=== PATIENT | female | born 1990 | race Caucasian/White ===

== ENCOUNTER 2020-11-11 23:02 | Inpatient (IN) | payer MEDICAID ==
[2020-11-12] MEDS ORDERED: Sodium Chloride 0.9% 10 ML Syringe FLUSH PRN (00:06)
[2020-11-12] MEDS ORDERED: Lidocaine 1% 50 ML MDV INJECT ONE (00:06)
[2020-11-12] MEDS ORDERED: Calcium Carbonate 500 MG Tab.Chew PO PRN (00:06)
[2020-11-12] MEDS ORDERED: Nalbuphine 10 MG/1 ML Vial IVPUSH PRN (00:06)
[2020-11-12] MEDS ORDERED: Oxytocin/Lactated Ringers 10 UNIT/1,000 ML BAG IV SCH ×2 (00:15)
[2020-11-12] MEDS: Lactated Ringers 1,000 ML IV SCH ×4 (02:10→07:31)
--- NOTE | 2020-11-12 02:25 | PCM.LDHP ---
L&D History of Present Illness - General Date of Service: 11/12/20 Admit Problem/Dx: Patient Status Order with Admit Dx/Problem 11/11/20 23:11 Patient Status [ADT] Routine 11/12/20 00:06 Patient Status [ADT] Routine Admission Diagnosis/Problem Admission Diagnosis/Problem Normal labor Source of Information: Patient History Limitations: Reports: No Limitations - History of Present Illness Introduction:: 30-year-old -0-1-2 PETE 11/26/2020 at estimated gestational age of 38 weeks 0 days today presented to labor and delivery complaining of contractions possible leaking of fluid. AmniSure was negative. Cervix 3 cm dilated presenting to labor and delivery and approximate hour and a half later had progressed to 4 cm dilated amniotomy performed at 0206 hrs. clear fluid cervix is 4 cm dilated 80% effaced soft posterior cephalic presentation -1 station 3 1 heart rate. Actions have been ranging every 2 to 4 minutes. Patient is being hydrated for epidural. Patient has history of MRSA many years ago and rapid screen was negative today. Patient has had only 3 visits and 1 visit to labor and delivery during this . Blood type O+ antibody screen negative hemoglobin/hematocrit 14.7/45.3 platelets 285,000 on 02/10/2014. Rubella immune serology nonreactive hepatitis B surface antigen nonreactive HIV nonreactive. Patient did have history of negative GC probe with positive chlamydia probe treated in labor and delivery with a azithromycin by history. No follow-up test of cure has been obtained. hemoglobin 11.3 platelets 206,001-hour OB glucose screen 120 antibody screen negative RPR nonreactive on 02/10/2014 yes negative on 10/30/2020. Patient has history of previous section has had 1 subsequent to her section and also 1 station spontaneous due to infection at 20 weeks 0 days Plan delivery. Will need test of cure for GC chlamydia probe in the near future at Dr. Monzon's office Timing/Duration: Reports: hour(s): Location, : Reports: Abdomen, Lower back, Uterus Improves with: Reports: None Worsens with: Reports: None Associated Symptoms: Reports: N - Related Data Allergies/Adverse Reactions: Allergies Allergy/AdvReac Type Severity Reaction Status Date / Time Latex, Natural Rubber Allergy Hives Verified 10/30/20 15:54 Penicillins Allergy Hives Verified 10/30/20 15:54 Sulfa (Sulfonamide Allergy Hives Verified 10/30/20 15:54 Antibiotics) Home Medications: Home Meds Acetaminophen/oxyCODONE [Percocet 325-5 MG] 1 - 2 tab PO Q4H PRN #30 tablet 09/24/14 [Rx] Past Medical History HEENT History: Reports: Other (See Below) Other HEENT History: deviated septum Genitourinary History: Reports: Renal Calculus TSO History: Reports: , Other (See Below) Other OB/BYN History: 20 twin loss Hematologic History: Reports: Blood Transfusion(s) - Infectious Disease History Infectious Disease History: Reports: MRSA - Past Surgical History HEENT Surgical History: Reports: None GI Surgical History: Reports: Appendectomy, Cholecystectomy Social & Family History - Family History Family Medical History: No Pertinent Family History H&P Review of Systems - Review of Systems: Review Of Systems: See Below General: Reports: No Symptoms HEENT: Reports: No Symptoms Pulmonary: Reports: No Symptoms Cardiovascular: Reports: No Symptoms Gastrointestinal: Reports: No Symptoms Genitourinary: Reports: No Symptoms Musculoskeletal: Reports: No Symptoms Skin: Reports: No Symptoms Psychiatric: Reports: No Symptoms Neurological: Reports: No Symptoms Hematologic/Lymphatic: Reports: No Symptoms Immunologic: Reports: No Symptoms L&D Exam - Exam Exam: See Below - Vital Signs Vital Signs: Last Vital Signs Temp 97.9 F 11/11/20 23:19 Pulse 102 H 11/11/20 23:19 Resp 16 11/11/20 23:19 BP 115/66 11/11/20 23:19 Pulse Ox 99 11/11/20 23:19 Weight: 197 lb 14.4 oz - OB Specific Fundal Height In cm: 38 Contraction Duration (sec): 60 Contraction Frequency (min): 2-4 Contraction Intensity: Moderate Movement: Active Heart Tones: Present Heart Tones per Min: 140 Heart Rate (FHR) Variability: Moderate (6-25 bmp) Presentation: Vertex - Edwards Score Edwards Score Cervix Position: Posterior Edwards Score Consistency: Soft Edwards Score Effacement: >80% Edwards Score Dilation: 3-4 cm Edwards Score 's Station: -1 ,0 Edwards Score Total: 9 - Exam General: Alert, Oriented HEENT: Conjunctiva Clear, Mucosa Moist & [place] Neck: Supple, Trachea Midline Lungs: Clear to Auscultation, Normal Respiratory Effort Cardiovascular: Regular Rate, Regular Rhythm GI/Abdominal Exam: Normal Bowel Sounds, Soft, Non-Tender Genitourinary: Normal external exam Extremities: Normal Inspection, Non-Tender, No Pedal Edema, Normal Capillary Refill Skin: Warm, Dry, Intact Psychiatric: Alert, Normal Affect, Normal Mood - Patient Data Lab Results Last 24 hrs: Laboratory Results - last 24 hr 11/11/20 11/11/20 11/11/20 Range/Units 23:20 23:20 23:29 WBC (3.98-10.04) K/mm3 RBC (3.98-5.22) M/mm3 Hgb (11.2-15.7) gm/dl Hct (34.1-44.9) % MCV (79.4-94.8) fl MCH (25.6-32.2) pg MCHC (32.2-35.5) g/dl RDW Std Deviation (36.4-46.3) fL Plt Count (182-369) K/mm3 MPV (9.4-12.3) fl Neut % (Auto) (34.0-71.1) % Lymph % (Auto) (19.3-51.7) % [place] % (Auto) (4.7-12.5) % Eos % (Auto) (0.7-5.8) Baso % (Auto) (0.1-1.2) % Neut # (Auto) (1.56-6.13) K/mm3 Lymph # (Auto) (1.18-3.74) K/mm3 [place] # (Auto) (0.24-0.36) K/mm3 Eos # (Auto) (0.04-0.36) K/mm3 Baso # (Auto) (0.01-0.08) K/mm3 Urine Color Yellow (Yellow) Urine Appearance Clear (Clear) Urine pH 7.0 (5.0-8.0) Ur Specific [place] > or = 1.030 (1.005-1.030) Urine Protein Negative (Negative) Urine Glucose (UA) Negative (Negative) Urine Ketones Negative (Negative) Urine Occult Blood Negative (Negative) Urine Nitrite Negative (Negative) Urine Bilirubin Negative (Negative) Urine Urobilinogen 0.2 (0.2-1.0) Ur Leukocyte Esterase Negative (Negative) Urine RBC Not seen (0-5) /hpf Urine WBC Not seen (0-5) /hpf Ur Squamous Epith Cells 5-10 H (0-5) /hpf Urine Bacteria Few (FEW) /hpf Urine Mucus Few (FEW) /hpf Membrane Rupture Negative Urine Opiates Screen Negative (NIDUSW=329) Ur Buprenorphine Scrn Negative (CUTOFF=10) Ur Oxycodone Screen Negative (KTZ1EF=552) Urine Methadone Screen Negative (INNNQQ=004) Ur Propoxyphene Screen Negative (GKORAN=185) Ur Barbiturates Screen Negative (HCYGTM=473) Ur Tricyclics Screen Negative (FUJWVV=130) Ur Phencyclidine Scrn Negative (CUTOFF=25) Ur Amphetamine Screen Negative (RJUEKE=612) U Methamphetamines Scrn Negative (ZHZMDO=084) U Benzodiazepines Scrn Negative (MECFEN=509) U Cocaine Metab Screen Negative (ONNJVE=553) U Marijuana (THC) Screen Negative (CUTOFF=50) SARS-CoV-2 RNA (RO) (NEGATIVE) MRSA (PCR) 11/12/20 11/12/20 11/12/20 Range/Units 00:20 00:20 00:38 WBC 17.62 H (3.98-10.04) K/mm3 RBC 3.89 L (3.98-5.22) M/mm3 Hgb 12.0 (11.2-15.7) gm/dl Hct 36.1 (34.1-44.9) % MCV 92.8 (79.4-94.8) fl MCH 30.8 (25.6-32.2) pg MCHC 33.2 (32.2-35.5) g/dl RDW Std Deviation 47.2 H (36.4-46.3) fL Plt Count 233 (182-369) K/mm3 MPV 10.9 (9.4-12.3) fl Neut % (Auto) 72.1 H (34.0-71.1) % Lymph % (Auto) 17.3 L (19.3-51.7) % [place] % (Auto) 7.9 (4.7-12.5) % Eos % (Auto) 1.9 (0.7-5.8) Baso % (Auto) 0.3 (0.1-1.2) % Neut # (Auto) 12.70 H (1.56-6.13) K/mm3 Lymph # (Auto) 3.05 (1.18-3.74) K/mm3 [place] # (Auto) 1.40 H (0.24-0.36) K/mm3 Eos # (Auto) 0.33 (0.04-0.36) K/mm3 Baso # (Auto) 0.06 (0.01-0.08) K/mm3 Urine Color (Yellow) Urine Appearance (Clear) Urine pH (5.0-8.0) Ur Specific [place] (1.005-1.030) Urine Protein (Negative) Urine Glucose (UA) (Negative) Urine Ketones (Negative) Urine Occult Blood (Negative) Urine Nitrite (Negative) Urine Bilirubin (Negative) Urine Urobilinogen (0.2-1.0) Ur Leukocyte Esterase (Negative) Urine RBC (0-5) /hpf Urine WBC (0-5) /hpf Ur Squamous Epith Cells (0-5) /hpf Urine Bacteria (FEW) /hpf Urine Mucus (FEW) /hpf Membrane Rupture Urine Opiates Screen (PLVZBF=155) Ur Buprenorphine Scrn (CUTOFF=10) Ur Oxycodone Screen (QWZ0TV=481) Urine Methadone Screen (KVEUSE=758) Ur Propoxyphene Screen (RDZXFD=156) Ur Barbiturates Screen (ZSDXKZ=233) Ur Tricyclics Screen (BBHYYJ=523) Ur Phencyclidine Scrn (CUTOFF=25) Ur Amphetamine Screen (XJTBGJ=296) U Methamphetamines Scrn (RXIKYY=720) U Benzodiazepines Scrn (KXFPVT=379) U Cocaine Metab Screen (WROYPE=563) U Marijuana (THC) Screen (CUTOFF=50) SARS-CoV-2 RNA (RO) Negative (NEGATIVE) MRSA (PCR) Negative Result Diagrams: 11/12/20 00:38 - Problem List (1) History of delivery affecting SNOMED Code(s): 297699455, 142009432 ICD Code: O34.219 - MATERNAL CARE FOR UNSP TYPE SCAR FROM PREVIOUS DEL Status: Acute Current Visit: Yes (2) 38 weeks gestation of SNOMED Code(s): 94753510 ICD Code: Z3A.38 - 38 WEEKS GESTATION OF Status: Acute Current Visit: Yes (3) History of Chlamydia trachomatis infection by direct DNA probe SNOMED Code(s): 793778368 ICD Code: Z86.19 - PERSONAL HISTORY OF OTHER INFECTIOUS AND PARASITIC DISEASES Status: Acute Current Visit: Yes (4) History of maternal Chlamydia infection, currently in third trimester SNOMED Code(s): 77749269, 77769414 ICD Code: O09.293 - SUPRVSN OF PREG W POOR REPRODCTV OR OBSTET HX, THIRD TRI Status: Acute Current Visit: Yes Problem List Initiated/Reviewed/Updated: No Orders Last 24hrs: Active Orders 24 hr Category Date Time Status Patient Status [ADT] Routine ADT 11/12/20 00:06 Active Activity as Tolerated [RC] PFP Care 11/12/20 00:06 Active Communication Order [RC] ASDIRECTED Care 11/12/20 00:06 Active Heart Tones [RC] ASDIRECTED Care 11/12/20 00:07 Active Non Stress Test [RC] PER UNIT ROUTINE Care 11/11/20 23:11 Active Notify Provider [RC] PFP Care 11/12/20 00:06 Active Notify Provider [RC] PRN Care 11/12/20 00:06 Active Peripheral IV Care [RC] . DIRECTED Care 11/12/20 00:07 Active Pump Management, Intrathecal [RC] ASDIRECTED Care 11/12/20 00:07 Active Urinary Catheter Assessment [RC] ASDIRECTED Care 11/12/20 00:06 Active Vital Signs [RC] PER UNIT ROUTINE Care 11/11/20 23:11 Active Regular Diet [DIET] Diet 11/12/20 Breakfast Active CULTURE MRSA [RM] Stat Lab 11/12/20 01:35 Ordered HEP C VIRUS AB [REF] Stat Lab 11/12/20 00:38 Received RAPID PLASMA REAGIN,RPR [CHEM] Stat Lab 11/12/20 00:38 Received TYPE AND SCREEN [BBK] Stat Lab 11/12/20 00:38 Received Calcium Carbonate [Tums] Med 11/12/20 00:06 Active 1,000 mg PO Q2H PRN Lactated Ringers [Ringers, Lactated] 1,000 ml Med 11/12/20 00:15 Active IV ASDIRECTED Nalbuphine [Nubain] Med 11/12/20 00:06 Active 10 mg IVPUSH Q2H PRN Oxytocin/Lactated Ringers [Pitocin in LR 10 Units/1,000 Med 11/12/20 00:15 Active ML] 10 unit in 1,000 ml IV .CONTINUOUS Oxytocin/Lactated Ringers [Pitocin in LR 10 Units/1,000 Med 11/12/20 00:15 Active ML] 10 unit in 1,000 ml IV TITRATE Sodium Chloride 0.9% [Saline Flush] Med 11/12/20 00:06 Active 10 ml FLUSH ASDIRECTED PRN Electronic Heart Tones Ext w TOCO [WOMSER] Oth 11/12/20 00:06 Ordered Routine Electronic Heart Tones Internal [WOMSER] Per Unit Oth 11/12/20 00:06 Ordered Routine Peripheral IV Insertion Adult [OM.PC] Routine Oth 11/12/20 00:06 Ordered Resuscitation Status Routine Resus Stat 11/11/20 23:11 Ordered Medication Orders Calcium Carbonate/Glycine (Calcium Carbonate 500 Mg Tab.Chew) 1,000 mg PO Q2H PRN PRN Reason: Indigestion Lactated Ringer's (Ringers, Lactated) 1,000 mls @ 100 mls/hr IV ASDIRECTED [place] Last Admin: 11/12/20 02:10 Dose: 100 mls/hr Documented by: KELLCOL Oxytocin/Lactated Ringer's (Pitocin In Lr 10 Units/1,000 Ml) 10 unit in 1,000 mls @ 12 mls/hr IV TITRATE [place]; Protocol Oxytocin/Lactated Ringer's (Pitocin In Lr 10 Units/1,000 Ml) 10 unit in 1,000 mls @ 500 mls/hr IV .CONTINUOUS [place] Nalbuphine HCl (Nalbuphine 10 Mg/1 Ml Vial) 10 mg IVPUSH Q2H PRN PRN Reason: Pain Sodium Chloride (Sodium Chloride 0.9% 10 Ml Syringe) 10 ml FLUSH ASDIRECTED PRN PRN Reason: Keep Vein Open Assessment/Plan Comment:: Z3A.38. History of previous section with subsequent History of positive chlamydia probe treated azithromycin 1000 mg
[2020-11-12] MEDS ORDERED: fentaNYL 100 MCG/2 ML SDV EPIDUR PRN (02:50)
[2020-11-12] MEDS ORDERED: Bupivacaine/fentaNYL/NS 100 ML Bag EPIDUR PRN (02:50)
[2020-11-12] MEDS ORDERED: diphenhydrAMINE 50 MG/ML SDV IVPUSH PRN (02:50)
--- NOTE | 2020-11-12 03:38 | PCM.PREANE ---
Preanesthetic Assessment - Procedure Proposed Procedure: Continuous labor epidural - Anesthesia/Transfusion/Family Hx Anesthesia History: Prior Anesthesia Without Reaction Transfusion History: Prior Transfusion Without Reaction - Review of Systems General: No Symptoms Pulmonary: No Symptoms, Cough (smoker's) Cardiovascular: No Symptoms Gastrointestinal: No Symptoms Neurological: No Symptoms Other: Reports: None - Physical Assessment Vital Signs: Last Vital Signs Temp 97.9 F 11/11/20 23:19 Pulse 102 H 11/11/20 23:19 Resp 16 11/11/20 23:19 BP 115/66 11/11/20 23:19 Pulse Ox 99 11/11/20 23:19 Height: 1.6 m Weight: 89.766 kg ASA Class: 2 Mental Status: Alert & Oriented x3 Airway Class: Mallampati = 1 Dentition: Reports: Normal Dentition Thyro-Mental Finger Breadths: 3 Mouth Opening Finger Breadths: 3 ROM/Head Extension: Full Lungs: Clear to Auscultation, Normal Respiratory Effort Cardiovascular: Regular Rate, Regular Rhythm - Lab Values: Laboratory Last Values WBC 17.62 K/mm3 (3.98-10.04) H 11/12/20 00:38 RBC 3.89 M/mm3 (3.98-5.22) L 11/12/20 00:38 Hgb 12.0 gm/dl (11.2-15.7) 11/12/20 00:38 Hct 36.1 % (34.1-44.9) 11/12/20 00:38 MCV 92.8 fl (79.4-94.8) 11/12/20 00:38 MCH 30.8 pg (25.6-32.2) 11/12/20 00:38 MCHC 33.2 g/dl (32.2-35.5) 11/12/20 00:38 RDW Std Deviation 47.2 fL (36.4-46.3) H 11/12/20 00:38 Plt Count 233 K/mm3 (182-369) 11/12/20 00:38 MPV 10.9 fl (9.4-12.3) 11/12/20 00:38 Neut % (Auto) 72.1 % (34.0-71.1) H 11/12/20 00:38 Lymph % (Auto) 17.3 % (19.3-51.7) L 11/12/20 00:38 [place] % (Auto) 7.9 % (4.7-12.5) 11/12/20 00:38 Eos % (Auto) 1.9 (0.7-5.8) 11/12/20 00:38 Baso % (Auto) 0.3 % (0.1-1.2) 11/12/20 00:38 Neut # (Auto) 12.70 K/mm3 (1.56-6.13) H 11/12/20 00:38 Lymph # (Auto) 3.05 K/mm3 (1.18-3.74) 11/12/20 00:38 [place] # (Auto) 1.40 K/mm3 (0.24-0.36) H 11/12/20 00:38 Eos # (Auto) 0.33 K/mm3 (0.04-0.36) 11/12/20 00:38 Baso # (Auto) 0.06 K/mm3 (0.01-0.08) 11/12/20 00:38 Urine Color Yellow (Yellow) 11/11/20 23:20 Urine Appearance Clear (Clear) 11/11/20 23:20 Urine pH 7.0 (5.0-8.0) 11/11/20 23:20 Ur Specific [place] > or = 1.030 (1.005-1.030) 11/11/20 23:20 Urine Protein Negative (Negative) 11/11/20 23:20 Urine Glucose (UA) Negative (Negative) 11/11/20 23:20 Urine Ketones Negative (Negative) 11/11/20 23:20 Urine Occult Blood Negative (Negative) 11/11/20 23:20 Urine Nitrite Negative (Negative) 11/11/20 23:20 Urine Bilirubin Negative (Negative) 11/11/20 23:20 Urine Urobilinogen 0.2 (0.2-1.0) 11/11/20 23:20 Ur Leukocyte Esterase Negative (Negative) 11/11/20 23:20 Urine RBC Not seen /hpf (0-5) 11/11/20 23:20 Urine WBC Not seen /hpf (0-5) 11/11/20 23:20 Ur Squamous Epith Cells 5-10 /hpf (0-5) H 11/11/20 23:20 Urine Bacteria Few /hpf (FEW) 11/11/20 23:20 Urine Mucus Few /hpf (FEW) 11/11/20 23:20 Membrane Rupture Negative 11/11/20 23:29 Urine Opiates Screen Negative (TFMOIN=645) 11/11/20 23:20 Ur Buprenorphine Scrn Negative (CUTOFF=10) 11/11/20 23:20 Ur Oxycodone Screen Negative (KUM9SJ=116) 11/11/20 23:20 Urine Methadone Screen Negative (VYFWLM=506) 11/11/20 23:20 Ur Propoxyphene Screen Negative (PHEZHW=405) 11/11/20 23:20 Ur Barbiturates Screen Negative (KTHIMR=535) 11/11/20 23:20 Ur Tricyclics Screen Negative (HMQYGX=157) 11/11/20 23:20 Ur Phencyclidine Scrn Negative (CUTOFF=25) 11/11/20 23:20 Ur Amphetamine Screen Negative (QXKZHS=057) 11/11/20 23:20 U Methamphetamines Scrn Negative (BEAIVB=702) 11/11/20 23:20 U Benzodiazepines Scrn Negative (NADUEW=659) 11/11/20 23:20 U Cocaine Metab Screen Negative (RLSRRW=883) 11/11/20 23:20 U Marijuana (THC) Screen Negative (CUTOFF=50) 11/11/20 23:20 SARS-CoV-2 RNA (RO) Negative (NEGATIVE) 11/12/20 00:20 MRSA (PCR) Negative 11/12/20 00:20 Blood Type O POSITIVE 11/12/20 00:38 Gel Antibody Screen Negative 11/12/20 00:38 - Allergies Allergies/Adverse Reactions: Allergies Allergy/AdvReac Type Severity Reaction Status Date / Time Latex, Natural Rubber Allergy Hives Verified 10/30/20 15:54 Penicillins Allergy Hives Verified 10/30/20 15:54 Sulfa (Sulfonamide Allergy Hives Verified 10/30/20 15:54 Antibiotics) - Acknowledgements Anesthesia Type Planned: Epidural Pt an Appropriate Candidate for the Planned Anesthesia: Yes Alternatives and Risks of Anesthesia Discussed w Pt/Guardian: Yes Pt/Guardian Understands and Agrees with Anesthesia Plan: Yes PreAnesthesia Questionnaire HEENT History: Reports: Other (See Below) Other HEENT History: deviated septum Genitourinary History: Reports: Renal Calculus [employer] History: Reports: , Other (See Below) Other OB/BYN History: 20 twin loss Hematologic History: Reports: Blood Transfusion(s) - Infectious Disease History Infectious Disease History: Reports: MRSA - Past Surgical History HEENT Surgical History: Reports: None GI Surgical History: Reports: Appendectomy, Cholecystectomy - SUBSTANCE USE Tobacco Use Status *Q: Current Every Day Tobacco User Tobacco Use Within Last Twelve Months: Cigarettes Second Hand Smoke Exposure: Yes Recreational Drug Use History: No - HOME MEDS Home Medications: Home Meds Acetaminophen/oxyCODONE [Percocet 325-5 MG] 1 - 2 tab PO Q4H PRN #30 tablet 09/24/14 [Rx] - CURRENT (IN HOUSE) MEDS Current Meds: Current Medications Calcium Carbonate/Glycine (Calcium Carbonate 500 Mg Tab.Chew) 1,000 mg PO Q2H PRN PRN Reason: Indigestion Diphenhydramine HCl (Diphenhydramine 50 Mg/Ml Sdv) 25 mg IVPUSH Q6H PRN PRN Reason: pruritis Ephedrine Sulfate (Ephedrine 50 Mg/Ml Sdv) 5 mg IVPUSH ASDIRECTED PRN PRN Reason: Hypotension Fentanyl (Fentanyl 100 Mcg/2 Ml Sdv) 100 mcg EPIDUR Q3H PRN PRN Reason: Pain Last Admin: 11/12/20 02:56 Dose: 100 mcg Documented by: Fentanyl/Bupivacaine HCl (Bupivacaine/Fentanyl/Ns 100 Ml Bag) 100 ml EPIDUR ASDIRECTED PRN PRN Reason: Pain Last Admin: 11/12/20 03:03 Dose: 100 ml Documented by: Lactated Ringer's (Ringers, Lactated) 1,000 mls @ 100 mls/hr IV ASDIRECTED [place] Last Admin: 11/12/20 02:56 Dose: 100 mls/hr Documented by: Oxytocin/Lactated Ringer's (Pitocin In Lr 10 Units/1,000 Ml) 10 unit in 1,000 mls @ 12 mls/hr IV TITRATE [place]; Protocol Oxytocin/Lactated Ringer's (Pitocin In Lr 10 Units/1,000 Ml) 10 unit in 1,000 mls @ 500 mls/hr IV .CONTINUOUS [place] Nalbuphine HCl (Nalbuphine 10 Mg/1 Ml Vial) 10 mg IVPUSH Q2H PRN PRN Reason: Pain Sodium Chloride (Sodium Chloride 0.9% 10 Ml Syringe) 10 ml FLUSH ASDIRECTED PRN PRN Reason: Keep Vein Open Discontinued Medications Lidocaine HCl (Lidocaine 1% 50 Ml Mdv) 50 ml INJECT ONETIME ONE Stop: 11/12/20 00:07
[2020-11-12] MEDS: ePHEDrine 50 MG/ML SDV IVPUSH PRN ×2 (03:51→03:57)
--- NOTE | 2020-11-12 04:30 | PCM.SN.2 ---
- Free Text/Narrative Note: Cervix check at 0422 6 cm, 90% multiparous cervix, not paper thin, soft, posterior. Good pain relief with epidural. Cat I FHR.
--- NOTE | 2020-11-12 05:23 | PCM.SN.2 ---
- Free Text/Narrative Note: Cervix check at 0515 7 cm, 80% multiparous cervix, soft, posterior vertex - [address] Young starting coverage. If no progress at 0545 will consider starting Pitocin. contractions becoming more regular.
[2020-11-12] MEDS ORDERED: Benzocaine/Menthol 20%-0.5% Spray 56 GM Canister TOP PRN (11:31)
[2020-11-12] MEDS ORDERED: Docusate Sodium 100 MG Cap PO PRN (11:31)
[2020-11-12] MEDS ORDERED: Acetaminophen 325 MG Tab PO PRN (11:31)
[2020-11-12] MEDS ORDERED: Witch Hazel Medicated Pads 40/Jar TOP PRN (11:31)
--- NOTE | 2020-11-12 11:37 | PCM.DEL ---
L & D Note - General Info Date of Service: 11/12/20 Mother's Due Date: 11/26/20 - Delivery Note Labor: Spontaneous, Augmented by Oxytocin Delivery Outcome: Livebirth Infant Delivery Method: Spontaneous Vaginal Delivery-Single Infant Delivery Mode: Spontaneous Presentation: Left Occiput Anterior (SKIP) Nuchal Cord: None Anesthesia Type: Epidural Amniotic Fluid Description: Clear Episiotomy Type: None Laceration: 1st Degree (at the level of the urethral, hemodynamically stable ) Placenta: Intact, Spontaneous Cord: 3 Vessels Estimated Blood Loss: 100 Resuscitation Needed: No : Suctioned, Bulb Syringe, Stimulated, Warmed Provider: Stepan Tirado Score 1 min: 8 Score 5 min: 9 Second Stage Interventions: Reports: Encouragement Given Delivery Comments (Free Text/Narrative):: Stage I: 30 year old O+ GBS - x 1, x 1, SAB at 20 weeks female at 38 weeks 0 day gestation who presented to labor and delivery for complaints of contractions and leaking of fluid. Noted meconium staining. Patient received epidural and Pitocin titrated up to 6 mg for augmentation of labor and progressed to complete and pushing Stage II: of a live male infant weighing 2970 g (6 lbs 9 ounces) with APGARs of 8/9 occurred at 1102 on 11/12/20 in the SKIP position. The was placed on mother's abdomen and was warmed and stimulated. The cord was clamped and cut after approximately 2 minutes by the patient's sister. The infant was then brought over to the warmer. Stage III: Spontaneous delivery of an intact placenta in the [place] presentation at 1107. Cord was inspected and found to have three vessels. The vaginal mucosa was inspected. Less than 1 cm 1st degree laceration on the right labia minora at the level of the urethra was noted; appeared hemodynamically stable. No other noted lacerations. Noted nabothian cyst on the cervix. EBL of 100 mL. Uterus was firm. The infant and mother were stable to recovery. - General Info Date of Service: 11/12/20 Admission Dx/Problem (Free Text): Patient Status Order with Admit Dx/Problem 11/11/20 23:11 Patient Status [ADT] Routine 11/12/20 00:06 Patient Status [ADT] Routine Admission Diagnosis/Problem Admission Diagnosis/Problem Normal labor - Patient Data Vitals - Most Recent: Last Vital Signs Temp 97.9 F 11/11/20 23:19 Pulse 102 H 11/11/20 23:19 Resp 16 11/11/20 23:19 BP 115/66 11/11/20 23:19 Pulse Ox 99 11/11/20 23:19 Weight - Most Recent: 197 lb 14.4 oz Lab Results Last 24 Hours: Laboratory Results - last 24 hr 11/11/20 11/11/20 11/11/20 Range/Units 23:20 23:20 23:29 WBC (3.98-10.04) K/mm3 RBC (3.98-5.22) M/mm3 Hgb (11.2-15.7) gm/dl Hct (34.1-44.9) % MCV (79.4-94.8) fl MCH (25.6-32.2) pg MCHC (32.2-35.5) g/dl RDW Std Deviation (36.4-46.3) fL Plt Count (182-369) K/mm3 MPV (9.4-12.3) fl Neut % (Auto) (34.0-71.1) % Lymph % (Auto) (19.3-51.7) % [place] % (Auto) (4.7-12.5) % Eos % (Auto) (0.7-5.8) Baso % (Auto) (0.1-1.2) % Neut # (Auto) (1.56-6.13) K/mm3 Lymph # (Auto) (1.18-3.74) K/mm3 [place] # (Auto) (0.24-0.36) K/mm3 Eos # (Auto) (0.04-0.36) K/mm3 Baso # (Auto) (0.01-0.08) K/mm3 Urine Color Yellow (Yellow) Urine Appearance Clear (Clear) Urine pH 7.0 (5.0-8.0) Ur Specific [place] > or = 1.030 (1.005-1.030) Urine Protein Negative (Negative) Urine Glucose (UA) Negative (Negative) Urine Ketones Negative (Negative) Urine Occult Blood Negative (Negative) Urine Nitrite Negative (Negative) Urine Bilirubin Negative (Negative) Urine Urobilinogen 0.2 (0.2-1.0) Ur Leukocyte Esterase Negative (Negative) Urine RBC Not seen (0-5) /hpf Urine WBC Not seen (0-5) /hpf Ur Squamous Epith Cells 5-10 H (0-5) /hpf Urine Bacteria Few (FEW) /hpf Urine Mucus Few (FEW) /hpf Membrane Rupture Negative Urine Opiates Screen Negative (YQXHEI=824) Ur Buprenorphine Scrn Negative (CUTOFF=10) Ur Oxycodone Screen Negative (GUD0AK=516) Urine Methadone Screen Negative (FQLOXZ=333) Ur Propoxyphene Screen Negative (CMXBYL=692) Ur Barbiturates Screen Negative (CJXXFP=756) Ur Tricyclics Screen Negative (XLUJHF=525) Ur Phencyclidine Scrn Negative (CUTOFF=25) Ur Amphetamine Screen Negative (XMHAYG=905) U Methamphetamines Scrn Negative (BSOFJP=619) U Benzodiazepines Scrn Negative (GGCLFI=566) U Cocaine Metab Screen Negative (PWLPXC=370) U Marijuana (THC) Screen Negative (CUTOFF=50) SARS-CoV-2 RNA (RO) (NEGATIVE) MRSA (PCR) Blood Type Gel Antibody Screen 11/12/20 11/12/20 11/12/20 Range/Units 00:20 00:20 00:38 WBC 17.62 H (3.98-10.04) K/mm3 RBC 3.89 L (3.98-5.22) M/mm3 Hgb 12.0 (11.2-15.7) gm/dl Hct 36.1 (34.1-44.9) % MCV 92.8 (79.4-94.8) fl MCH 30.8 (25.6-32.2) pg MCHC 33.2 (32.2-35.5) g/dl RDW Std Deviation 47.2 H (36.4-46.3) fL Plt Count 233 (182-369) K/mm3 MPV 10.9 (9.4-12.3) fl Neut % (Auto) 72.1 H (34.0-71.1) % Lymph % (Auto) 17.3 L (19.3-51.7) % [place] % (Auto) 7.9 (4.7-12.5) % Eos % (Auto) 1.9 (0.7-5.8) Baso % (Auto) 0.3 (0.1-1.2) % Neut # (Auto) 12.70 H (1.56-6.13) K/mm3 Lymph # (Auto) 3.05 (1.18-3.74) K/mm3 [place] # (Auto) 1.40 H (0.24-0.36) K/mm3 Eos # (Auto) 0.33 (0.04-0.36) K/mm3 Baso # (Auto) 0.06 (0.01-0.08) K/mm3 Urine Color (Yellow) Urine Appearance (Clear) Urine pH (5.0-8.0) Ur Specific [place] (1.005-1.030) Urine Protein (Negative) Urine Glucose (UA) (Negative) Urine Ketones (Negative) Urine Occult Blood (Negative) Urine Nitrite (Negative) Urine Bilirubin (Negative) Urine Urobilinogen (0.2-1.0) Ur Leukocyte Esterase (Negative) Urine RBC (0-5) /hpf Urine WBC (0-5) /hpf Ur Squamous Epith Cells (0-5) /hpf Urine Bacteria (FEW) /hpf Urine Mucus (FEW) /hpf Membrane Rupture Urine Opiates Screen (REHSXY=555) Ur Buprenorphine Scrn (CUTOFF=10) Ur Oxycodone Screen (EHB7GA=623) Urine Methadone Screen (NXGILW=846) Ur Propoxyphene Screen (DRGCYE=946) Ur Barbiturates Screen (PISNNT=450) Ur Tricyclics Screen (DIEBEQ=374) Ur Phencyclidine Scrn (CUTOFF=25) Ur Amphetamine Screen (DNCRYF=848) U Methamphetamines Scrn (MKELLZ=142) U Benzodiazepines Scrn (JBVZTL=834) U Cocaine Metab Screen (NVTEVZ=260) U Marijuana (THC) Screen (CUTOFF=50) SARS-CoV-2 RNA (RO) Negative (NEGATIVE) MRSA (PCR) Negative Blood Type Gel Antibody Screen 11/12/20 Range/Units 00:38 WBC (3.98-10.04) K/mm3 RBC (3.98-5.22) M/mm3 Hgb (11.2-15.7) gm/dl Hct (34.1-44.9) % MCV (79.4-94.8) fl MCH (25.6-32.2) pg MCHC (32.2-35.5) g/dl RDW Std Deviation (36.4-46.3) fL Plt Count (182-369) K/mm3 MPV (9.4-12.3) fl Neut % (Auto) (34.0-71.1) % Lymph % (Auto) (19.3-51.7) % [place] % (Auto) (4.7-12.5) % Eos % (Auto) (0.7-5.8) Baso % (Auto) (0.1-1.2) % Neut # (Auto) (1.56-6.13) K/mm3 Lymph # (Auto) (1.18-3.74) K/mm3 [place] # (Auto) (0.24-0.36) K/mm3 Eos # (Auto) (0.04-0.36) K/mm3 Baso # (Auto) (0.01-0.08) K/mm3 Urine Color (Yellow) Urine Appearance (Clear) Urine pH (5.0-8.0) Ur Specific [place] (1.005-1.030) Urine Protein (Negative) Urine Glucose (UA) (Negative) Urine Ketones (Negative) Urine Occult Blood (Negative) Urine Nitrite (Negative) Urine Bilirubin (Negative) Urine Urobilinogen (0.2-1.0) Ur Leukocyte Esterase (Negative) Urine RBC (0-5) /hpf Urine WBC (0-5) /hpf Ur Squamous Epith Cells (0-5) /hpf Urine Bacteria (FEW) /hpf Urine Mucus (FEW) /hpf Membrane Rupture Urine Opiates Screen (GZARHN=727) Ur Buprenorphine Scrn (CUTOFF=10) Ur Oxycodone Screen (POF3LZ=778) Urine Methadone Screen (IKVPFT=345) Ur Propoxyphene Screen (WGEGLX=723) Ur Barbiturates Screen (XCSVXE=333) Ur Tricyclics Screen (HXPVWO=067) Ur Phencyclidine Scrn (CUTOFF=25) Ur Amphetamine Screen (HZKNYQ=477) U Methamphetamines Scrn (TNFDZK=121) U Benzodiazepines Scrn (BLBVMV=999) U Cocaine Metab Screen (VOLNOE=522) U Marijuana (THC) Screen (CUTOFF=50) SARS-CoV-2 RNA (RO) (NEGATIVE) MRSA (PCR) Blood Type O POSITIVE Gel Antibody Screen Negative Med Orders - Current: Current Medications Acetaminophen (Acetaminophen 325 Mg Tab) 650 mg PO Q4H PRN PRN Reason: mild pain or fever Benzocaine/Menthol (Benzocaine/Menthol 20%-0.5% [place] 56 Gm Canister) 0 gm TOP ASDIRECTED PRN PRN Reason: Perineal Comfort Measure Calcium Carbonate/Glycine (Calcium Carbonate 500 Mg Tab.Chew) 1,000 mg PO Q2H PRN PRN Reason: Indigestion Diphenhydramine HCl (Diphenhydramine 50 Mg/Ml Sdv) 25 mg IVPUSH Q6H PRN PRN Reason: pruritis Docusate Sodium (Docusate Sodium 100 Mg Cap) 100 mg PO BID PRN PRN Reason: Constipation Ephedrine Sulfate (Ephedrine 50 Mg/Ml Sdv) 5 mg IVPUSH ASDIRECTED PRN PRN Reason: Hypotension Last Admin: 11/12/20 03:57 Dose: 5 mg Documented by: Fentanyl (Fentanyl 100 Mcg/2 Ml Sdv) 100 mcg EPIDUR Q3H PRN PRN Reason: Pain Last Admin: 11/12/20 02:56 Dose: 100 mcg Documented by: Fentanyl/Bupivacaine HCl (Bupivacaine/Fentanyl/Ns 100 Ml Bag) 100 ml EPIDUR ASDIRECTED PRN PRN Reason: Pain Last Admin: 11/12/20 03:03 Dose: 100 ml Documented by: Lactated Ringer's (Ringers, Lactated) 1,000 mls @ 100 mls/hr IV ASDIRECTED [place] Last Admin: 11/12/20 07:31 Dose: 100 mls/hr Documented by: Oxytocin/Lactated Ringer's (Pitocin In Lr 10 Units/1,000 Ml) 10 unit in 1,000 mls @ 12 mls/hr IV TITRATE [place]; Protocol Last Titration: 11/12/20 09:00 Dose: 4 munits/min, 24 mls/hr Documented by: Oxytocin/Lactated Ringer's (Pitocin In Lr 10 Units/1,000 Ml) 10 unit in 1,000 mls @ 500 mls/hr IV .CONTINUOUS [place] Ibuprofen (Ibuprofen 600 Mg Tab) 600 mg PO Q4H PRN PRN Reason: Mild pain or fever Nalbuphine HCl (Nalbuphine 10 Mg/1 Ml Vial) 10 mg IVPUSH Q2H PRN PRN Reason: Pain Prenat Multivit/[place]/Iron/Folic Ac ( Multivitamin With Calcium/Folic Acid/Iron Tab) 1 each PO DAILY [place] Sodium Chloride (Sodium Chloride 0.9% 10 Ml Syringe) 10 ml FLUSH ASDIRECTED PRN PRN Reason: Keep Vein Open Witch Naomie (Witch Naomie Medicated Pads 40/Jar) 1 pad TOP ASDIRECTED PRN PRN Reason: Perineal Comfort Measure Discontinued Medications Lidocaine HCl (Lidocaine 1% 50 Ml Mdv) 50 ml INJECT ONETIME ONE Stop: 11/12/20 00:07 - Problem List & Annotations (1) 38 weeks gestation of SNOMED Code(s): 64086347 Code(s): Z3A.38 - 38 WEEKS GESTATION OF Status: Acute Current Visit: Yes (2) History of delivery affecting SNOMED Code(s): 314085551, 633560036 Code(s): O34.219 - MATERNAL CARE FOR UNSP TYPE SCAR FROM PREVIOUS DEL Status: Acute Current Visit: Yes (3) History of maternal Chlamydia infection, currently in third trimester SNOMED Code(s): 21509060, 13073398 Code(s): O09.293 - SUPRVSN OF PREG W POOR REPRODCTV OR OBSTET HX, THIRD TRI Status: Acute Current Visit: Yes (4) Vaginal delivery SNOMED Code(s): 808064162 Code(s): O80 - ENCOUNTER FOR FULL-TERM UNCOMPLICATED DELIVERY Status: Acute Current Visit: No - Problem List Review Problem List Initiated/Reviewed/Updated: Yes - My Orders Last 24 Hours: My Active Orders 11/12/20 11:30 Patient Status Manage Transfer [TRANSFER] Routine 11/12/20 11:31 Activity as Tolerated [RC] PER UNIT ROUTINE May Shower [RC] ASDIRECTED Vital Signs [RC] ASDIRECTED Acetaminophen [TylenoL] 650 mg PO Q4H PRN Benzocaine/Menthol [Dermoplast Pain Relief [place]] See Dose Instructions TOP ASDIRECTED PRN Docusate Sodium [Colace] 100 mg PO BID PRN Ibuprofen [Motrin] 600 mg PO Q4H PRN witch Naomie [Tucks] 1 pad TOP ASDIRECTED PRN Assess Lochia [WOMSER] Per Unit Routine Assess Uterine Involution [WOMSER] Per Unit Routine Breast Pump [WOMSER] Per Unit Routine Medication Administration Instruction [OM.PC] Routine Perineal Care [OM.PC] Per Unit Routine Sitz Bath [OM.PC] Per Unit Routine 11/12/20 11:33 Ice Therapy [OM.PC] Per Unit Routine 11/12/20 11:45 Heat Therapy [OM.PC] PRN 11/13/20 09:00 Vit with Ca/FA/Iron [ Plus Iron] 1 each PO DAILY 11/13/20 11:45 Heat Therapy [OM.PC] PRN - Plan Plan:: PPD#0 of a live male weighing 2970 g (6 lbs 9 ounce) with APGARs of 8/9 to a 30 year old O+ GBS - x 1, x 1 at 38-0 weeks gestational age. 1. GBS- 2. O+ with negative antibody screen 3. Rubella immune 4. History of chlamydia with treatment of Azithromycin - test of cure per Dr. Rodriguez's note 5. care per unit routine 6. Activity as tolerated 7. Regular diet 8. Anticipate discharge in 24-48 hours pending double needle stitcher's recommendation
[2020-11-12] MEDS ORDERED: Lidocaine 1.5% with EPINEPHrine 1:200,000 5 ML Amp ONE (12:00)
[2020-11-12] MEDS: Ibuprofen 600 MG Tab PO PRN ×2 (16:43→21:04)
[2020-11-12] MEDS ORDERED: Acetaminophen/oxyCODONE 325-5 MG Tab PO PRN ×2 (21:53→21:55)
--- NOTE | 2020-11-13 07:41 | PCM48HPAN ---
Post Anesthesia Note - EVALUATION WITHIN 48HRS OF ANESTHETIC Vital Signs in Normal Range: Yes Patient Participated in Evaluation: Yes Respiratory Function Stable: Yes Airway Patent: Yes Cardiovascular Function Stable: Yes Hydration Status Stable: Yes Pain Control Satisfactory: Yes Nausea and Vomiting Control Satisfactory: Yes Mental Status Recovered: Yes Vital Signs: Last Vital Signs Temp 36.8 C 11/13/20 03:39 Pulse 74 11/13/20 03:39 Resp 14 11/13/20 03:39 BP 124/97 H 11/13/20 03:39 Pulse Ox 97 11/13/20 03:39
[2020-11-13] MEDS ORDERED: Prenatal Multivitamin with Calcium/Folic Acid/Iron Tab PO SCH (09:00)
[2020-11-13] MEDS: Ibuprofen 600 MG Tab PO PRN (09:17)
--- NOTE | 2020-11-13 10:41 | PCM.DCSUM1 ---
Discharge Summary - Hospital Course Free Text/Narrative:: [facility] LIVE L/D Delivery Note Patient Name: KIRILL SALAZAR Date of : 86 Patient Status: Inpatient Attending Provider: Bryan Rodriguez Date: 11/12/20 11:35 Initialization Date: 11/12/20 11:35 L & D Note - General Info Date of Service: 11/12/20 Mother's Due Date: 11/26/20 - Delivery Note Labor: Spontaneous, Augmented by Oxytocin Delivery Outcome: Livebirth Delivery Method: Spontaneous Vaginal Delivery-Single Delivery Mode: Spontaneous Presentation: Left Occiput Anterior (SKIP) Nuchal Cord: None Anesthesia Type: Epidural Amniotic Fluid Description: Clear Episiotomy Type: None Laceration: 1st Degree (at the level of the urethral, hemodynamically stable ) Placenta: Intact, Spontaneous Cord: 3 Vessels Estimated Blood Loss: 100 Resuscitation Needed: No : Suctioned, Bulb Syringe, Stimulated, Warmed Provider: Stepan Tirado Score 1 min: 8 Score 5 min: 9 Second Stage Interventions: Reports: Encouragement Given Delivery Comments (Free Text/Narrative):: Stage I: 30 year old O+ GBS - x 1, x 1, SAB at 20 weeks female at 38 weeks 0 day gestation who presented to labor and delivery for complaints of contractions and leaking of fluid. Noted meconium staining. Patient received epidural and Pitocin titrated up to 6 mg for augmentation of labor and progressed to complete and pushing Stage II: of a live male infant weighing 2970 g (6 lbs 9 ounces) with APGARs of 8/9 occurred at 1102 on 11/12/20 in the SKIP position. The was placed on mother's abdomen and was warmed and stimulated. The cord was clamped and cut after approximately 2 minutes by the patient's sister. The infant was then brought over to the warmer. Stage III: Spontaneous delivery of an intact placenta in the Opal presentation at 1107. Cord was inspected and found to have three vessels. The vaginal mucosa was inspected. Less than 1 cm 1st degree laceration on the right labia minora at the level of the urethra was noted; appeared hemodynamically stable. No other noted lacerations. Noted nabothian cyst on the cervix. EBL of 100 mL. Uterus was firm. The and mother were stable to recovery. - General Info Date of Service: 11/12/20 Admission Dx/Problem (Free Text): Patient Status Order with Admit Dx/Problem 11/11/20 23:11 Patient Status [ADT] Routine 11/12/20 00:06 Patient Status [ADT] Routine Admission Diagnosis/Problem Admission Diagnosis/Problem Normal labor - Patient Data Vitals - Most Recent: Last Vital Signs Temp 97.9 F 11/11/20 23:19 Pulse 102 H 11/11/20 23:19 Resp 16 11/11/20 23:19 BP 115/66 11/11/20 23:19 Pulse Ox 99 11/11/20 23:19 Weight - Most Recent: 197 lb 14.4 oz Lab Results Last 24 Hours: Laboratory Results - last 24 hr 11/11/20 11/11/20 11/11/20 Range/Units 23:20 23:20 23:29 WBC (3.98-10.04) K/mm3 RBC (3.98-5.22) M/mm3 Hgb (11.2-15.7) gm/dl Hct (34.1-44.9) % MCV (79.4-94.8) fl MCH (25.6-32.2) pg MCHC (32.2-35.5) g/dl RDW Std Deviation (36.4-46.3) fL Plt Count (182-369) K/mm3 MPV (9.4-12.3) fl Neut % (Auto) (34.0-71.1) % Lymph % (Auto) (19.3-51.7) % Darke % (Auto) (4.7-12.5) % Eos % (Auto) (0.7-5.8) Baso % (Auto) (0.1-1.2) % Neut # (Auto) (1.56-6.13) K/mm3 Lymph # (Auto) (1.18-3.74) K/mm3 Darke # (Auto) (0.24-0.36) K/mm3 Eos # (Auto) (0.04-0.36) K/mm3 Baso # (Auto) (0.01-0.08) K/mm3 Urine Color Yellow (Yellow) Urine Appearance Clear (Clear) Urine pH 7.0 (5.0-8.0) Ur Specific [place] > or = 1.030 (1.005-1.030) Urine Protein Negative (Negative) Urine Glucose (UA) Negative (Negative) Urine Ketones Negative (Negative) Urine Occult Blood Negative (Negative) Urine Nitrite Negative (Negative) Urine Bilirubin Negative (Negative) Urine Urobilinogen 0.2 (0.2-1.0) Ur Leukocyte Esterase Negative (Negative) Urine RBC Not seen (0-5) /hpf Urine WBC Not seen (0-5) /hpf Ur Squamous Epith Cells 5-10 H (0-5) /hpf Urine Bacteria Few (FEW) /hpf Urine Mucus Few (FEW) /hpf Membrane Rupture Negative Urine Opiates Screen Negative (OLOPGE=170) Ur Buprenorphine Scrn Negative (CUTOFF=10) Ur Oxycodone Screen Negative (BFI4TS=070) Urine Methadone Screen Negative (SPKSBB=642) Ur Propoxyphene Screen Negative (FKHPSZ=938) Ur Barbiturates Screen Negative (AWOANG=502) Ur Tricyclics Screen Negative (TICEVV=525) Ur Phencyclidine Scrn Negative (CUTOFF=25) Ur Amphetamine Screen Negative (QAWDYI=431) U Methamphetamines Scrn Negative (EFSWTR=269) U Benzodiazepines Scrn Negative (EROCKH=156) U Cocaine Metab Screen Negative (FQPNPE=136) U Marijuana (THC) Screen Negative (CUTOFF=50) SARS-CoV-2 RNA (RO) (NEGATIVE) MRSA (PCR) Blood Type Gel Antibody Screen 11/12/20 11/12/20 11/12/20 Range/Units 00:20 00:20 00:38 WBC 17.62 H (3.98-10.04) K/mm3 RBC 3.89 L (3.98-5.22) M/mm3 Hgb 12.0 (11.2-15.7) gm/dl Hct 36.1 (34.1-44.9) % MCV 92.8 (79.4-94.8) fl MCH 30.8 (25.6-32.2) pg MCHC 33.2 (32.2-35.5) g/dl RDW Std Deviation 47.2 H (36.4-46.3) fL Plt Count 233 (182-369) K/mm3 MPV 10.9 (9.4-12.3) fl Neut % (Auto) 72.1 H (34.0-71.1) % Lymph % (Auto) 17.3 L (19.3-51.7) % Darke % (Auto) 7.9 (4.7-12.5) % Eos % (Auto) 1.9 (0.7-5.8) Baso % (Auto) 0.3 (0.1-1.2) % Neut # (Auto) 12.70 H (1.56-6.13) K/mm3 Lymph # (Auto) 3.05 (1.18-3.74) K/mm3 Darke # (Auto) 1.40 H (0.24-0.36) K/mm3 Eos # (Auto) 0.33 (0.04-0.36) K/mm3 Baso # (Auto) 0.06 (0.01-0.08) K/mm3 Urine Color (Yellow) Urine Appearance (Clear) Urine pH (5.0-8.0) Ur Specific [place] (1.005-1.030) Urine Protein (Negative) Urine Glucose (UA) (Negative) Urine Ketones (Negative) Urine Occult Blood (Negative) Urine Nitrite (Negative) Urine Bilirubin (Negative) Urine Urobilinogen (0.2-1.0) Ur Leukocyte Esterase (Negative) Urine RBC (0-5) /hpf Urine WBC (0-5) /hpf Ur Squamous Epith Cells (0-5) /hpf Urine Bacteria (FEW) /hpf Urine Mucus (FEW) /hpf Membrane Rupture Urine Opiates Screen (HOCAFM=053) Ur Buprenorphine Scrn (CUTOFF=10) Ur Oxycodone Screen (GIO6FA=428) Urine Methadone Screen (SEPWZX=758) Ur Propoxyphene Screen (RZSFKH=604) Ur Barbiturates Screen (HNWSWT=263) Ur Tricyclics Screen (IYFLHA=311) Ur Phencyclidine Scrn (CUTOFF=25) Ur Amphetamine Screen (GXPBIY=602) U Methamphetamines Scrn (SCRCIX=979) U Benzodiazepines Scrn (MCYEVY=583) U Cocaine Metab Screen (JKIDUU=803) U Marijuana (THC) Screen (CUTOFF=50) SARS-CoV-2 RNA (RO) Negative (NEGATIVE) MRSA (PCR) Negative Blood Type Gel Antibody Screen 11/12/20 Range/Units 00:38 WBC (3.98-10.04) K/mm3 RBC (3.98-5.22) M/mm3 Hgb (11.2-15.7) gm/dl Hct (34.1-44.9) % MCV (79.4-94.8) fl MCH (25.6-32.2) pg MCHC (32.2-35.5) g/dl RDW Std Deviation (36.4-46.3) fL Plt Count (182-369) K/mm3 MPV (9.4-12.3) fl Neut % (Auto) (34.0-71.1) % Lymph % (Auto) (19.3-51.7) % [place]ke % (Auto) (4.7-12.5) % Eos % (Auto) (0.7-5.8) Baso % (Auto) (0.1-1.2) % Neut # (Auto) (1.56-6.13) K/mm3 Lymph # (Auto) (1.18-3.74) K/mm3 Darke # (Auto) (0.24-0.36) K/mm3 Eos # (Auto) (0.04-0.36) K/mm3 Baso # (Auto) (0.01-0.08) K/mm3 Urine Color (Yellow) Urine Appearance (Clear) Urine pH (5.0-8.0) Ur Specific [place] (1.005-1.030) Urine Protein (Negative) Urine Glucose (UA) (Negative) Urine Ketones (Negative) Urine Occult Blood (Negative) Urine Nitrite (Negative) Urine Bilirubin (Negative) Urine Urobilinogen (0.2-1.0) Ur Leukocyte Esterase (Negative) Urine RBC (0-5) /hpf Urine WBC (0-5) /hpf Ur Squamous Epith Cells (0-5) /hpf Urine Bacteria (FEW) /hpf Urine Mucus (FEW) /hpf Membrane Rupture Urine Opiates Screen (GULPJD=821) Ur Buprenorphine Scrn (CUTOFF=10) Ur Oxycodone Screen (OLH3JZ=172) Urine Methadone Screen (YLMQOC=512) Ur Propoxyphene Screen (UZOQGO=074) Ur Barbiturates Screen (IEBUMH=442) Ur Tricyclics Screen (OXDJXF=299) Ur Phencyclidine Scrn (CUTOFF=25) Ur Amphetamine Screen (RKBGMR=767) U Methamphetamines Scrn (DDTLSD=668) U Benzodiazepines Scrn (GTPQXE=457) U Cocaine Metab Screen (XBNSWB=921) U Marijuana (THC) Screen (CUTOFF=50) SARS-CoV-2 RNA (RO) (NEGATIVE) MRSA (PCR) Blood Type O POSITIVE Gel Antibody Screen Negative Med Orders - Current: Current Medications Acetaminophen (Acetaminophen 325 Mg Tab) 650 mg PO Q4H PRN PRN Reason: mild pain or fever Benzocaine/Menthol (Benzocaine/Menthol 20%-0.5% [place] 56 Gm Canister) 0 gm TOP ASDIRECTED PRN PRN Reason: Perineal Comfort Measure Calcium Carbonate/Glycine (Calcium Carbonate 500 Mg Tab.Chew) 1,000 mg PO Q2H PRN PRN Reason: Indigestion Diphenhydramine HCl (Diphenhydramine 50 Mg/Ml Sdv) 25 mg IVPUSH Q6H PRN PRN Reason: pruritis Docusate Sodium (Docusate Sodium 100 Mg Cap) 100 mg PO BID PRN PRN Reason: Constipation Ephedrine Sulfate (Ephedrine 50 Mg/Ml Sdv) 5 mg IVPUSH ASDIRECTED PRN PRN Reason: Hypotension Last Admin: 11/12/20 03:57 Dose: 5 mg Documented by: Fentanyl (Fentanyl 100 Mcg/2 Ml Sdv) 100 mcg EPIDUR Q3H PRN PRN Reason: Pain Last Admin: 11/12/20 02:56 Dose: 100 mcg Documented by: Fentanyl/Bupivacaine HCl (Bupivacaine/Fentanyl/Ns 100 Ml Bag) 100 ml EPIDUR ASDIRECTED PRN PRN Reason: Pain Last Admin: 11/12/20 03:03 Dose: 100 ml Documented by: Lactated Ringer's (Ringers, Lactated) 1,000 mls @ 100 mls/hr IV ASDIRECTED [place] Last Admin: 11/12/20 07:31 Dose: 100 mls/hr Documented by: Oxytocin/Lactated Ringer's (Pitocin In Lr 10 Units/1,000 Ml) 10 unit in 1,000 mls @ 12 mls/hr IV TITRATE [place]; Protocol Last Titration: 11/12/20 09:00 Dose: 4 munits/min, 24 mls/hr Documented by: Oxytocin/Lactated Ringer's (Pitocin In Lr 10 Units/1,000 Ml) 10 unit in 1,000 mls @ 500 mls/hr IV .CONTINUOUS [place] Ibuprofen (Ibuprofen 600 Mg Tab) 600 mg PO Q4H PRN PRN Reason: Mild pain or fever Nalbuphine HCl (Nalbuphine 10 Mg/1 Ml Vial) 10 mg IVPUSH Q2H PRN PRN Reason: Pain Prenat Multivit/Spacer Type Bar And Segment/Iron/Folic Ac ( Multivitamin With Calcium/Folic Acid/Iron Tab) 1 each PO DAILY [place] Sodium Chloride (Sodium Chloride 0.9% 10 Ml Syringe) 10 ml FLUSH ASDIRECTED PRN PRN Reason: Keep Vein Open Witch Naomie (Witch Naomie Medicated Pads 40/Jar) 1 pad TOP ASDIRECTED PRN PRN Reason: Perineal Comfort Measure Discontinued Medications Lidocaine HCl (Lidocaine 1% 50 Ml Mdv) 50 ml INJECT ONETIME ONE Stop: 11/12/20 00:07 - Problem List & Annotations (1) 38 weeks gestation of SNOMED Code(s): 94682376 Code(s): Z3A.38 - 38 WEEKS GESTATION OF Status: Acute Current Visit: Yes (2) History of delivery affecting SNOMED Code(s): 458184325, 143061870 Code(s): O34.219 - MATERNAL CARE FOR UNSP TYPE SCAR FROM PREVIOUS D EL Status: Acute Current Visit: Yes (3) History of maternal Chlamydia infection, currently in third trimester SNOMED Code(s): 30273226, 54616094 Code(s): O09.293 - SUPRVSN OF PREG W POOR REPRODCTV OR OBSTET HX, THIRD TRI Status: Acute Current Visit: Yes (4) Vaginal delivery SNOMED Code(s): 171539398 Code(s): O80 - ENCOUNTER FOR FULL-TERM UNCOMPLICATED DELIVERY Status: Acute Current Visit: No - Problem List Review Problem List Initiated/Reviewed/Updated: Yes - My Orders Last 24 Hours: My Active Orders 11/12/20 11:30 Patient Status Manage Transfer [TRANSFER] Routine 11/12/20 11:31 Activity as Tolerated [RC] PER UNIT ROUTINE May Shower [RC] ASDIRECTED Vital Signs [RC] ASDIRECTED Acetaminophen [TylenoL] 650 mg PO Q4H PRN Benzocaine/Menthol [Dermoplast Pain Relief [place]] See Dose Instructions TOP ASDIRECTED PRN Docusate Sodium [Colace] 100 mg PO BID PRN Ibuprofen [Motrin] 600 mg PO Q4H PRN witch Naomie [Tucks] 1 pad TOP ASDIRECTED PRN Assess Lochia [WOMSER] Per Unit Routine Assess Uterine Involution [WOMSER] Per Unit Routine Breast Pump [WOMSER] Per Unit Routine Medication Administration Instruction [OM.PC] Routine Perineal Care [OM.PC] Per Unit Routine Sitz Bath [OM.PC] Per Unit Routine 11/12/20 11:33 Ice Therapy [OM.PC] Per Unit Routine 11/12/20 11:45 Heat Therapy [OM.PC] PRN 11/13/20 09:00 Vit with Ca/FA/Iron [ Plus Iron] 1 each PO DAILY 11/13/20 11:45 Heat Therapy [OM.PC] PRN - Plan Plan:: PPD#0 of a live male infant weighing 2970 g (6 lbs 9 ounce) with APGARs of 8/9 to a 30 year old O+ GBS - x 1, x 1 at 38-0 weeks gestational age. 1. GBS- 2. O+ with negative antibody screen 3. Rubella immune 4. History of chlamydia with treatment of Azithromycin - test of cure per Dr. Rodriguez's note 5. care per unit routine 6. Activity as tolerated 7. Regular diet 8. Anticipate discharge in 24-48 hours pending lockstitch lining setter's recommendation HPI Initial Comments: [facility] LIVE L/D Delivery Note Patient Name: KIRILL SALAZAR Date of : 86 Patient Status: Inpatient Attending Provider: Bryan Rodriguez Date: 11/12/20 11:35 Initialization Date: 11/12/20 11:35 L & D Note - General Info Date of Service: 11/12/20 Mother's Due Date: 11/26/20 - Delivery Note Labor: Spontaneous, Augmented by Oxytocin Delivery Outcome: Livebirth Delivery Method: Spontaneous Vaginal Delivery-Single Infant Delivery Mode: Spontaneous Presentation: Left Occiput Anterior (SKIP) Nuchal Cord: None Anesthesia Type: Epidural Amniotic Fluid Description: Clear Episiotomy Type: None Laceration: 1st Degree (at the level of the urethral, hemodynamically stable ) Placenta: Intact, Spontaneous Cord: 3 Vessels Estimated Blood Loss: 100 Resuscitation Needed: No [place]: Suctioned, Bulb Syringe, Stimulated, Warmed Provider: Stepan Tirado Score 1 min: 8 Score 5 min: 9 Second Stage Interventions: Reports: Encouragement Given Delivery Comments (Free Text/Narrative):: Stage I: 30 year old O+ GBS - x 1, x 1, SAB at 20 weeks female at 38 weeks 0 day gestation who presented to labor and delivery for complaints of contractions and leaking of fluid. Noted meconium staining. Patient received epidural and Pitocin titrated up to 6 mg for augmentation of labor and progressed to complete and pushing Stage II: of a live male infant weighing 2970 g (6 lbs 9 ounces) with APGARs of 8/9 occurred at 1102 on 11/12/20 in the SKIP position. The was placed on mother's abdomen and was warmed and stimulated. The cord was clamped and cut after approximately 2 minutes by the patient's sister. The was then brought over to the warmer. Stage III: Spontaneous delivery of an intact placenta in the Opal presentation at 1107. Cord was inspected and found to have three vessels. The vaginal mucosa was inspected. Less than 1 cm 1st degree laceration on the right labia minora at the level of the urethra was noted; appeared hemodynamically stable. No other noted lacerations. Noted nabothian cyst on the cervix. EBL of 100 mL. Uterus was firm. The infant and mother were stable to recovery. - General Info Date of Service: 11/12/20 Admission Dx/Problem (Free Text): Patient Status Order with Admit Dx/Problem 11/11/20 23:11 Patient Status [ADT] Routine 11/12/20 00:06 Patient Status [ADT] Routine Admission Diagnosis/Problem Admission Diagnosis/Problem Normal labor - Patient Data Vitals - Most Recent: Last Vital Signs Temp 97.9 F 11/11/20 23:19 Pulse 102 H 11/11/20 23:19 Resp 16 11/11/20 23:19 BP 115/66 03/24/21 23:19 Pulse Ox 99 11/11/20 23:19 Weight - Most Recent: 197 lb 14.4 oz Lab Results Last 24 Hours: Laboratory Results - last 24 hr 11/11/20 11/11/20 11/11/20 Range/Units 23:20 23:20 23:29 WBC (3.98-10.04) K/mm3 RBC (3.98-5.22) M/mm3 Hgb (11.2-15.7) gm/dl Hct (34.1-44.9) % MCV (79.4-94.8) fl MCH (25.6-32.2) pg MCHC (32.2-35.5) g/dl RDW Std Deviation (36.4-46.3) fL Plt Count (182-369) K/mm3 MPV (9.4-12.3) fl Neut % (Auto) (34.0-71.1) % Lymph % (Auto) (19.3-51.7) % Darke % (Auto) (4.7-12.5) % Eos % (Auto) (0.7-5.8) Baso % (Auto) (0.1-1.2) % Neut # (Auto) (1.56-6.13) K/mm3 Lymph # (Auto) (1.18-3.74) K/mm3 Darke # (Auto) (0.24-0.36) K/mm3 Eos # (Auto) (0.04-0.36) K/mm3 Baso # (Auto) (0.01-0.08) K/mm3 Urine Color Yellow (Yellow) Urine Appearance Clear (Clear) Urine pH 7.0 (5.0-8.0) Ur Specific [place] > or = 1.030 (1.005-1.030) Urine Protein Negative (Negative) Urine Glucose (UA) Negative (Negative) Urine Ketones Negative (Negative) Urine Occult Blood Negative (Negative) Urine Nitrite Negative (Negative) Urine Bilirubin Negative (Negative) Urine Urobilinogen 0.2 (0.2-1.0) Ur Leukocyte Esterase Negative (Negative) Urine RBC Not seen (0-5) /hpf Urine WBC Not seen (0-5) /hpf Ur Squamous Epith Cells 5-10 H (0-5) /hpf Urine Bacteria Few (FEW) /hpf Urine Mucus Few (FEW) /hpf Membrane Rupture Negative Urine Opiates Screen Negative (PSMEIX=851) Ur Buprenorphine Scrn Negative (CUTOFF=10) Ur Oxycodone Screen Negative (LJZ3NC=982) Urine Methadone Screen Negative (SKXSHU=196) Ur Propoxyphene Screen Negative (GCCUYK=327) Ur Barbiturates Screen Negative (TONXIN=568) Ur Tricyclics Screen Negative (XTIKGY=813) Ur Phencyclidine Scrn Negative (CUTOFF=25) Ur Amphetamine Screen Negative (QMEOBP=767) U Methamphetamines Scrn Negative (OIPEFX=520) U Benzodiazepines Scrn Negative (XJUUHI=814) U Cocaine Metab Screen Negative (NNWMKK=400) U Marijuana (THC) Screen Negative (CUTOFF=50) SARS-CoV-2 RNA (RO) (NEGATIVE) MRSA (PCR) Blood Type Gel Antibody Screen 11/12/20 11/12/20 11/12/20 Range/Units 00:20 00:20 00:38 WBC 17.62 H (3.98-10.04) K/mm3 RBC 3.89 L (3.98-5.22) M/mm3 Hgb 12.0 (11.2-15.7) gm/dl Hct 36.1 (34.1-44.9) % MCV 92.8 (79.4-94.8) fl MCH 30.8 (25.6-32.2) pg MCHC 33.2 (32.2-35.5) g/dl RDW Std Deviation 47.2 H (36.4-46.3) fL Plt Count 233 (182-369) K/mm3 MPV 10.9 (9.4-12.3) fl Neut % (Auto) 72.1 H (34.0-71.1) % Lymph % (Auto) 17.3 L (19.3-51.7) % Darke % (Auto) 7.9 (4.7-12.5) % Eos % (Auto) 1.9 (0.7-5.8) Baso % (Auto) 0.3 (0.1-1.2) % Neut # (Auto) 12.70 H (1.56-6.13) K/mm3 Lymph # (Auto) 3.05 (1.18-3.74) K/mm3 Darke # (Auto) 1.40 H (0.24-0.36) K/mm3 Eos # (Auto) 0.33 (0.04-0.36) K/mm3 Baso # (Auto) 0.06 (0.01-0.08) K/mm3 Urine Color (Yellow) Urine Appearance (Clear) Urine pH (5.0-8.0) Ur Specific [place] (1.005-1.030) Urine Protein (Negative) Urine Glucose (UA) (Negative) Urine Ketones (Negative) Urine Occult Blood (Negative) Urine Nitrite (Negative) Urine Bilirubin (Negative) Urine Urobilinogen (0.2-1.0) Ur Leukocyte Esterase (Negative) Urine RBC (0-5) /hpf Urine WBC (0-5) /hpf Ur Squamous Epith Cells (0-5) /hpf Urine Bacteria (FEW) /hpf Urine Mucus (FEW) /hpf Membrane Rupture Urine Opiates Screen (TAOPVM=194) Ur Buprenorphine Scrn (CUTOFF=10) Ur Oxycodone Screen (NHT3YZ=590) Urine Methadone Screen (YNZYIO=675) Ur Propoxyphene Screen (VYETEI=122) Ur Barbiturates Screen (IMRTNF=788) Ur Tricyclics Screen (UVPPBO=447) Ur Phencyclidine Scrn (CUTOFF=25) Ur Amphetamine Screen (NKXZJY=511) U Methamphetamines Scrn (GRVDXB=949) U Benzodiazepines Scrn (NTGUDE=063) U Cocaine Metab Screen (APJOGV=095) U Marijuana (THC) Screen (CUTOFF=50) SARS-CoV-2 RNA (OR) Negative (NEGATIVE) MRSA (PCR) Negative Blood Type Gel Antibody Screen 11/12/20 Range/Units 00:38 WBC (3.98-10.04) K/mm3 RBC (3.98-5.22) M/mm3 Hgb (11.2-15.7) gm/dl Hct (34.1-44.9) % MCV (79.4-94.8) fl MCH (25.6-32.2) pg MCHC (32.2-35.5) g/dl RDW Std Deviation (36.4-46.3) fL Plt Count (182-369) K/mm3 MPV (9.4-12.3) fl Neut % (Auto) (34.0-71.1) % Lymph % (Auto) (19.3-51.7) % [place] % (Auto) (4.7-12.5) % Eos % (Auto) (0.7-5.8) Baso % (Auto) (0.1-1.2) % Neut # (Auto) (1.56-6.13) K/mm3 Lymph # (Auto) (1.18-3.74) K/mm3 [place] # (Auto) (0.24-0.36) K/mm3 Eos # (Auto) (0.04-0.36) K/mm3 Baso # (Auto) (0.01-0.08) K/mm3 Urine Color (Yellow) Urine Appearance (Clear) Urine pH (5.0-8.0) Ur Specific [place] (1.005-1.030) Urine Protein (Negative) Urine Glucose (UA) (Negative) Urine Ketones (Negative) Urine Occult Blood (Negative) Urine Nitrite (Negative) Urine Bilirubin (Negative) Urine Urobilinogen (0.2-1.0) Ur Leukocyte Esterase (Negative) Urine RBC (0-5) /hpf Urine WBC (0-5) /hpf Ur Squamous Epith Cells (0-5) /hpf Urine Bacteria (FEW) /hpf Urine Mucus (FEW) /hpf Membrane Rupture Urine Opiates Screen (FWVTQU=927) Ur Buprenorphine Scrn (CUTOFF=10) Ur Oxycodone Screen (RNR7PZ=963) Urine Methadone Screen (LFWDXD=481) Ur Propoxyphene Screen (RNJMEB=412) Ur Barbiturates Screen (WBBDHB=980) Ur Tricyclics Screen (ACOQIW=732) Ur Phencyclidine Scrn (CUTOFF=25) Ur Amphetamine Screen (XOYHRB=084) U Methamphetamines Scrn (YGALWZ=359) U Benzodiazepines Scrn (TSFYTF=155) U Cocaine Metab Screen (YRHJEQ=985) U Marijuana (THC) Screen (CUTOFF=50) SARS-CoV-2 RNA (RO) (NEGATIVE) MRSA (PCR) Blood Type O POSITIVE Gel Antibody Screen Negative Med Orders - Current: Current Medications Acetaminophen (Acetaminophen 325 Mg Tab) 650 mg PO Q4H PRN PRN Reason: mild pain or fever Benzocaine/Menthol (Benzocaine/Menthol 20%-0.5% [place] 56 Gm Canister) 0 gm TOP ASDIRECTED PRN PRN Reason: Perineal Comfort Measure Calcium Carbonate/Glycine (Calcium Carbonate 500 Mg Tab.Chew) 1,000 mg PO Q2H PRN PRN Reason: Indigestion Diphenhydramine HCl (Diphenhydramine 50 Mg/Ml Sdv) 25 mg IVPUSH Q6H PRN PRN Reason: pruritis Docusate Sodium (Docusate Sodium 100 Mg Cap) 100 mg PO BID PRN PRN Reason: Constipation Ephedrine Sulfate (Ephedrine 50 Mg/Ml Sdv) 5 mg IVPUSH ASDIRECTED PRN PRN Reason: Hypotension Last Admin: 11/12/20 03:57 Dose: 5 mg Documented by: Fentanyl (Fentanyl 100 Mcg/2 Ml Sdv) 100 mcg EPIDUR Q3H PRN PRN Reason: Pain Last Admin: 11/12/20 02:56 Dose: 100 mcg Documented by: Fentanyl/Bupivacaine HCl (Bupivacaine/Fentanyl/Ns 100 Ml Bag) 100 ml EPIDUR ASDIRECTED PRN PRN Reason: Pain Last Admin: 11/12/20 03:03 Dose: 100 ml Documented by: Lactated Ringer's (Ringers, Lactated) 1,000 mls @ 100 mls/hr IV ASDIRECTED [place] Last Admin: 11/12/20 07:31 Dose: 100 mls/hr Documented by: Oxytocin/Lactated Ringer's (Pitocin In Lr 10 Units/1,000 Ml) 10 unit in 1,000 mls @ 12 mls/hr IV TITRATE [place]; Protocol Last Titration: 11/12/20 09:00 Dose: 4 munits/min, 24 mls/hr Documented by: Oxytocin/Lactated Ringer's (Pitocin In Lr 10 Units/1,000 Ml) 10 unit in 1,000 mls @ 500 mls/hr IV .CONTINUOUS [place] Ibuprofen (Ibuprofen 600 Mg Tab) 600 mg PO Q4H PRN PRN Reason: Mild pain or fever Nalbuphine HCl (Nalbuphine 10 Mg/1 Ml Vial) 10 mg IVPUSH Q2H PRN PRN Reason: Pain Prenat Multivit/Spacer Type Bar And Segment/Iron/Folic Ac ( Multivitamin With Calcium/Folic Acid/Iron Tab) 1 each PO DAILY [place] Sodium Chloride (Sodium Chloride 0.9% 10 Ml Syringe) 10 ml FLUSH ASDIRECTED PRN PRN Reason: Keep Vein Open Witch Naomie (Witch Naomie Medicated Pads 40/Jar) 1 pad TOP ASDIRECTED PRN PRN Reason: Perineal Comfort Measure Discontinued Medications Lidocaine HCl (Lidocaine 1% 50 Ml Mdv) 50 ml INJECT ONETIME ONE Stop: 11/12/20 00:07 - Problem List & Annotations (1) 38 weeks gestation of SNOMED Code(s): 46072610 Code(s): Z3A.38 - 38 WEEKS GESTATION OF Status: Acute Current Visit: Yes (2) History of delivery affecting SNOMED Code(s): 895655906, 067424863 Code(s): O34.219 - MATERNAL CARE FOR UNSP TYPE SCAR FROM PREVIOUS DEL Status: Acute Current Visit: Yes (3) History of maternal Chlamydia infection, currently in third trimester SNOMED Code(s): 65841525, 95242947 Code(s): O09.293 - SUPRVSN OF PREG W POOR REPRODCTV OR OBSTET HX, THIRD TRI Status: Acute Current Visit: Yes (4) Vaginal delivery SNOMED Code(s): 564876177 Code(s): O80 - ENCOUNTER FOR FULL-TERM UNCOMPLICATED DELIVERY Status: Acute Current Visit: No - Problem List Review Problem List Initiated/Reviewed/Updated: Yes - My Orders Last 24 Hours: My Active Orders 11/12/20 11:30 Patient Status Manage Transfer [TRANSFER] Routine 11/12/20 11:31 Activity as Tolerated [RC] PER UNIT ROUTINE May Shower [RC] ASDIRECTED Vital Signs [RC] ASDIRECTED Acetaminophen [TylenoL] 650 mg PO Q4H PRN Benzocaine/Menthol [Dermoplast Pain Relief [place]] See Dose Instructions TOP ASDIRECTED PRN Docusate Sodium [Colace] 100 mg PO BID PRN Ibuprofen [Motrin] 600 mg PO Q4H PRN witch Naomie [Tucks] 1 pad TOP ASDIRECTED PRN Assess Lochia [WOMSER] Per Unit Routine Assess Uterine Involution [WOMSER] Per Unit Routine Breast Pump [WOMSER] Per Unit Routine Medication Administration Instruction [OM.PC] Routine Perineal Care [OM.PC] Per Unit Routine Sitz Bath [OM.PC] Per Unit Routine 11/12/20 11:33 Ice Therapy [OM.PC] Per Unit Routine 11/12/20 11:45 Heat Therapy [OM.PC] PRN 11/13/20 09:00 Vit with Ca/FA/Iron [ Plus Iron] 1 each PO DAILY 11/13/20 11:45 Heat Therapy [OM.PC] PRN - Plan Plan:: PPD#0 of a live male infant weighing 2970 g (6 lbs 9 ounce) with APGARs of 8/9 to a 32 year old O+ GBS - x 1, x 1 at 38-0 weeks gestational age. 1. GBS- 2. O+ with negative antibody screen 3. Rubella immune 4. History of chlamydia with treatment of Azithromycin - test of cure per Dr. Rodriguez's note 5. care per unit routine 6. Activity as tolerated 7. Regular diet 8. Anticipate discharge in 24-48 hours pending lockstitch lining setter's recommendation Brief History: [facility] LIVE . L/D Delivery Note. Patient Name: KIRILL SALAZAR Record Number: [id number]. Date of : 86Patient Status: Inpatient. Attending Provider: Bryan Rodriguez Number: [id number]. Date: 11/12/20 11:35Initialization Date: 11/12/20 11:35. L & D Note. - General Info. Date of Service: 11/12/20. Mother's Due Date: 11/26/20. - Delivery Note. Labor: Spontaneous, Augmented by Oxytocin. Delivery Outcome: Livebirth. Infant Delivery Method: Spontaneous Vaginal Delivery-Single. Infant Delivery Mode: Spontaneous. Presentation: Left Occiput Anterior (SKIP). Nuchal Cord: None. Anesthesia Type: Epidural. Amniotic Fluid Description: Clear. Episiotomy Type: None. Laceration: 1st Degree (at the level of the urethral, hemodynamically stable ). Placenta: Intact, Spontaneous. Cord: 3 Vessels. Estimated Blood Loss: 100. Resuscitation Needed: No. [place]: Suctioned, Bulb Syringe, Stimulated, Warmed. Provider: Stepan Tirado. Score 1 min: 8. Score 5 min: 9. Second Stage Interventions: Reports: Encouragement Given. Delivery Comments (Free Text/Narrative):: Stage I: 30 year old O+ GBS - x 1, x 1, SAB at 20 weeks female at 38 weeks 0 day gestation who presented to labor and delivery for complaints of contractions and leaking of fluid. Noted meconium staining. Patient received epidural and Pitocin titrated up to 6 mg for augmentation of labor and progressed to complete and pushing. Stage II: of a live male weighing 2970 g (6 lbs 9 ounces) with APGARs of 8/9 occurred at 1102 on 11/12/20 in the SKIP position. The infant was placed on mother's abdomen and was warmed and stimulated. The cord was clamped and cut after approximately 2 minutes by the patient's sister. The infant was then brought over to the warmer. Stage III: Spontaneous delivery of an intact placenta in the [place] presentation at 1107. Cord was inspected and found to have three vessels. The vaginal mucosa was inspected. Less than 1 cm 1st degree laceration on the right labia minora at the level of the urethra was noted; appeared hemodynamically stable. No other noted lacerations. Noted nabothian cyst on the cervix. EBL of 100 mL. Uterus was firm. The and mother were stable to recovery. - General Info. Date of Service: 11/12/20. Admission Dx/Problem (Free Text): Patient Status Order with Admit Dx/Problem. 11/11/20 23:11. Patient Status [ADT] Routine. 11/12/20 00:06. Patient Status [ADT] Routine. Admission Diagnosis/Problem. Admission Diagnosis/Problem Normal labor. - Patient Data. Vitals - Most Recent: Last Vital Signs. Temp 97.9 F 11/11/20 23:19. Pulse 102 H 11/11/20 23:19. Resp 16 11/11/20 23:19. BP 115/66 11/11/20 23:19. Pulse Ox 99 11/11/20 23:19. Weight - Most Recent: 197 lb 14.4 oz. Lab Results Last 24 Hours: Laboratory Results - last 24 hr. 11/11/2102Range/Units. 23:202:2022:29. WBC (3.98-10.04) K/mm3. RBC (3.98-5.22) M/mm3. Hgb (11.2-15.7) gm/dl. Hct (34.1-44.9) %. MCV (79.4-94.8) fl. MCH (25.6-32.2) pg. MCHC (32.2-35.5) g/dl. RDW Std Deviation (36.4-46.3) fL. Plt Count (182-369) K/mm3. MPV (9.4-12.3) fl. Neut % (Auto) (34.0-71.1) %. Lymph % (Auto) (19.3-51.7) %. Darke % (Auto) (4.7-12.5) %. Eos % (Auto) (0.7-5.8). Baso % (Auto) (0.1-1.2) %. Neut # (Auto) (1.56-6.13) K/mm3. Lymph # (Auto) (1.18-3.74) K/mm3. Darke # (Auto) (0.24-0.36) K/mm3. Eos # (Auto) (0.04-0.36) K/mm3. Baso # (Auto) (0.01-0.08) K/mm3. Urine Color Yellow (Yellow). Urine Appearance Clear (Clear). Urine pH 7.0 (5.0-8.0). Ur Specific [place] > or = 1.030 (1.005-1.030). Urine Protein Negative (Negative). Urine Glucose (UA) Negative (Negative). Urine Ketones Negative (Negative). Urine Occult Blood Negative (Negative). Urine Nitrite Negative (Negative). Urine Bilirubin Negative (Negative). Urine Urobilinogen 0.2 (0.2-1.0). Ur Leukocyte Esterase Negative (Negative). Urine RBC Not seen (0-5) /hpf. Urine WBC Not seen (0-5) /hpf. Ur Squamous Epith Cells 5-10 H (0-5) /hpf. Urine Bacteria Few (FEW) /hpf. Urine Mucus Few (FEW) /hpf. Membrane Rupture Negative. Urine Opiates Screen Negative (RNTJTA=809). Ur Buprenorphine Scrn Negative (CUTOFF=10). Ur Oxycodone Screen Negative (DJG6CQ=790). Urine Methadone Screen Negative (YHVNET=735). Ur Propoxyphene Screen Negative (CHYWSU=031). Ur Barbiturates Screen Negative (LSULSK=089). Ur Tricyclics Screen Negative (YQVHQW=177). Ur Phencyclidine Scrn Negative (CUTOFF=25). Ur Amphetamine Screen Negative (BEOHHE=291). U Methamphetamines Scrn Negative (GBKJJO=548). U Benzodiazepines Scrn Negative (TTTBNW=724). U Cocaine Metab Screen Negative (ZEJZHO=688). U Marijuana (THC) Screen Negative (CUTOFF=50). SARS-CoV-2 RNA (RO) (NEGATIVE). MRSA (PCR). Blood Type. Gel Antibody Screen. 11/12/2102Range/Units. 00:2000:2000:38. WBC 17.62 H (3.98-10.04) K/mm3. RBC 3.89 L (3.98-5.22) M/mm3. Hgb 12.0 (11.2-15.7) gm/dl. Hct 36.1 (34.1-44.9) %. MCV 92.8 (79.4- 94.8) fl. MCH 30.8 (25.6-32.2) pg. MCHC 33.2 (32.2-35.5) g/dl. RDW Std Deviation 47.2 H (36.4-46.3) fL. Plt Count 233 (182-369) K/mm3. MPV 10.9 (9.4-12.3) fl. Neut % (Auto) 72.1 H (34.0-71.1) %. Lymph % (Auto) 17.3 L (19.3-51.7) %. Darke % (Auto) 7.9 (4.7-12.5) %. Eos % (Auto) 1.9 (0.7-5.8). Baso % (Auto) 0.3 (0.1-1.2) %. Neut # (Auto) 12.70 H (1.56-6.13) K/mm3. Lym ph # (Auto) 3.05 (1.18-3.74) K/mm3. Darke # (Auto) 1.40 H (0.24-0.36) K/mm3. Eos # (Auto) 0.33 (0.04-0.36) K/mm3. Baso # (Auto) 0.06 (0.01-0.08) K/mm3. Urine Color (Yellow). Urine Appearance (Clear). Urine pH (5.0-8.0). Ur Specific [place] (1.005-1.030). Urine Protein (Negative). Urine Glucose (UA) (Negative). Urine Ketones (Negative). Urine Occult Blood (Negative). Urine Nitrite (Negative). Urine Bilirubin (Negative). Urine Urobilinogen (0.2-1.0). Ur Leukocyte Esterase (Negative). Urine RBC (0-5) /hpf. Urine WBC (0-5) /hpf. Ur Squamous Epith Cells (0-5) /hpf. Urine Bacteria (FEW) /hpf. Urine Mucus (FEW) /hpf. Membrane Rupture. Urine Opiates Screen (MQYJMH=993). Ur Buprenorphine Scrn (CUTOFF=10). Ur Oxycodone Screen (KND5FG=081). Urine Methadone Screen (JUJOKT=235). Ur Propoxyphene Screen (NKDPSM=736). Ur Barbiturates Screen (SCJEMS=373). Ur Tricyclics Screen (DWULWK=315). Ur Phencyclidine Scrn (CUTOFF=25). Ur Amphetamine Screen (XYWVFN=687). U Methamphetamines Scrn (BOSYTR=327). U Benzodiazepines Scrn (TENRIJ=205). U Cocaine Metab Screen (DIGDBZ=756). U Marijuana (THC) Screen (CUTOFF=50). SARS-CoV-2 RNA (RO) Negative (NEGATIVE). MRSA (PCR) Negative. Blood Type. Gel Antibody Screen. 11/12/20Range/Units. 00:38. WBC (3.98-10.04) K/mm3. RBC (3.98-5.22) M/mm3. Hgb (11.2-15.7) gm/dl. Hct (34.1-44.9) %. MCV (79.4-94.8) fl. MCH (25.6-32.2) pg. MCHC (32.2-35.5) g/dl. RDW Std Deviation (36.4-46.3) fL. Plt Count (182-369) K/mm3. MPV (9.4-12.3) fl. Neut % (Auto) (34.0-71.1) %. Lymph % (Auto) (19.3-51.7) %. Darke % (Auto) (4.7-12.5) %. Eos % (Auto) (0.7-5.8). Baso % (Auto) (0.1-1.2) %. Neut # (Auto) (1.56-6.13) K/mm3. Lymph # (Auto) (1.18-3.74) K/mm3. Darke # (Auto) (0.24-0.36) K/mm3. Eos # (Auto) (0.04-0.36) K/mm3. Baso # (Auto) (0.01-0.08) K/mm3. Urine Color (Yellow). Urine Appearance (Clear). Urine pH (5.0-8.0). Ur Specific [place] (1.005-1.030). Urine Protein (Negative). Urine Glucose (UA) (Negative). Urine Ketones (Negative). Urine Occult Blood (Negative). Urine Nitrite (Negative). Urine Bilirubin (Negative). Urine Urobilinogen (0.2- 1.0). Ur Leukocyte Esterase (Negative). Urine RBC (0-5) /hpf. Urine WBC (0- 5) /hpf. Ur Squamous Epith Cells (0-5) /hpf. Urine Bacteria (FEW) /hpf. Urine Mucus (FEW) /hpf. Membrane Rupture. Urine Opiates Screen (CUTOF F=100). Ur Buprenorphine Scrn (CUTOFF=10). Ur Oxycodone Screen (HSS4BU=882). Urine Methadone Screen (ZZKTAQ=251). Ur Propoxyphene Screen (JLEEEU=375). Ur Barbiturates Screen (EUPJLU=545). Ur Tricyclics Screen (OJBWBG=454). Ur Phencyclidine Scrn (CUTOFF=25). Ur Amphetamine Screen (JNQLUS=692). U Methamphetamines Scrn (AZYMKI=327). U Benzodiazepines Scrn (RCCMJW=481). U Cocaine Metab Screen (EAIUNH=525). U Marijuana (THC) Screen (CUTOFF=50). SARS-CoV-2 RNA (RO) (NEGATIVE). MRSA (PCR). Blood Type O POSITIVE. Gel Antibody Screen Negative. Med Orders - Current: Current Medications. Acetaminophen (Acetaminophen 325 Mg Tab) 650 mg PO Q4H PRN. PRN Reason: mild pain or fever. Benzocaine/Menthol (Benzocaine/Menthol 20%-0.5% [place] 56 Gm Canister) 0 gm TOP ASDIRECTED PRN. PRN Reason: Perineal Comfort Measure. Calcium Carbonate/Glycine (Calcium Carbonate 500 Mg Tab.Chew) 1,000 mg PO Q2H PRN. PRN Reason: Indigestion. Diphenhydramine HCl (Diphenhydramine 50 Mg/Ml Sdv) 25 mg IVPUSH Q6H PRN. PRN Reason: pruritis. Docusate Sodium (Docusate Sodium 100 Mg Cap) 100 mg PO BID PRN. PRN Reason: Constipation. Ephedrine Sulfate (Ephedrine 50 Mg/Ml Sdv) 5 mg IVPUSH ASDIRECTED PRN. PRN Reason: Hypotension. Last Admin: 11/12/20 03:57 Dose: 5 mg. Documented by: Fentanyl (Fentanyl 100 Mcg/2 Ml Sdv) 100 mcg EPIDUR Q3H PRN. PRN Reason: Pain. Last Admin: 11/12/20 02:56 Dose: 100 mcg. Documented by: Fentanyl/Bupivacaine HCl (Bupivacaine/Fentanyl/Ns 100 Ml Bag) 100 ml EPIDUR ASDIRECTED PRN. PRN Reason: Pain. Last Admin: 11/12/20 03:03 Dose: 100 ml. Documented by: Lactated Ringer's (Ringers, Lactated) 1,000 mls @ 100 mls/hr IV ASDIRECTED [place]. Last Admin: 11/12/20 07:31 Dose: 100 mls/hr. Documented by: Oxytocin/Lactated Ringer's (Pitocin In Lr 10 Units/1,000 Ml) 10 unit in 1,000 mls @ 12 mls/hr IV TITRATE [place]; Protocol. Last Titration: 11/12/20 09:00 Dose: 4 munits/min, 24 mls/hr. Documented by: Oxytocin/Lactated Ringer's (Pitocin In Lr 10 U nits/1,000 Ml) 10 unit in 1,000 mls @ 500 mls/hr IV .CONTINUOUS [place]. Ibuprofen (Ibuprofen 600 Mg Tab) 600 mg PO Q4H PRN. PRN Reason: Mild pain or fever. Nalbuphine HCl (Nalbuphine 10 Mg/1 Ml Vial) 10 mg IVPUSH Q2H PRN. PRN Reason: Pain. Prenat Multivit/Bosque/Iron/Folic Ac ( Multivitamin With Calcium/Folic Acid/Iron Tab) 1 each PO DAILY [place]. Sodium Chloride (Sodium Chloride 0.9% 10 Ml Syringe) 10 ml FLUSH ASDIRECTED PRN. PRN Reason: Keep Vein Open. Witch Naomie (Witch Naomie Medicated Pads 40/Jar) 1 pad TOP ASDIRECTED PRN. PRN Reason: Perineal Comfort Measure. Discontinued Medications. Lidocaine HCl (Lidocaine 1% 50 Ml Mdv) 50 ml INJECT ONETIME ONE. Stop: 11/12/20 00:07. - Problem List & Annotations. (1) 38 weeks gestation of . SNOMED Code(s): 88846056. Code(s): Z3A.38 - 38 WEEKS GESTATION OF Status: Acute Current Visit: Yes. (2) History of delivery affecting . SNOMED Code(s): 702979017, 694893156. Code(s): O34.219 - MATERNAL CARE FOR UNSP TYPE SCAR FROM PREVIOUS DEL Status: Acute Current Visit: Yes. (3) History of maternal Chlamydia infection, currently in third trimester. SNOMED Code(s): 26570101, 84030284. Code(s): O09.293 - SUPRVSN OF PREG W POOR REPRODCTV OR OBSTET HX, THIRD TRI Status: Acute Current Visit: Yes. (4) Vaginal delivery. SNOMED Code(s): 576977501. Code(s): O80 - ENCOUNTER FOR FULL-TERM UNCOMPLICATED DELIVERY Status: Acute Current Visit: No. - Problem List Review. Problem List Initiated/Reviewed/Updated: Yes. - My Orders. Last 24 Hours: My Active Orders. 11/12/20 11:30. Patient Status Manage Transfer [TRANSFER] Routine. 11/12/20 11:31. Activity as Tolerated [RC] PER UNIT ROUTINE. May Shower [RC] ASDIRECTED. Vital Signs [RC] ASDIRECTED. Acetaminophen [TylenoL] 650 mg PO Q4H PRN. Benzocaine/Menthol [Dermoplast Pain Relief [place]] See Dose Instructions TOP ASDIRECTED PRN. Docusate Sodium [Colace] 100 mg PO BID PRN. Ibuprofen [Motrin] 600 mg PO Q4H PRN. witch Naomie [Tucks] 1 pad TOP ASDIRECTED PRN. Assess Lochia [WOMSER] Per Unit Routine. Assess Uterine Involution [WOMSER] Per Unit Routine. Breast Pump [WOMSER] Per Unit Routine. Medication Administration Instruction [OM.PC] Routine. Perineal Care [OM.PC] Per Unit Routine. Sitz Bath [OM.PC] Per Unit Routine. 11/12/20 11:33. Ice Therapy [OM.PC] Per Unit Routine. 11/12/20 11:45. Heat Therapy [OM.PC] PRN. 11/13/20 09:00. Vit with Ca/FA/Iron [ Plus Iron] 1 each PO DAILY. 11/13/20 11:45. Heat Therapy [OM.PC] PRN. - Plan. Plan:: PPD#0 of a live male infant weighing 2970 g (6 lbs 9 ounce) with APGARs of 8/9 to a 30 year old O+ GBS - x 1, x 1 at 38-0 weeks gestational age. 1. GBS-. 2. O+ with negative antibody screen. 3. Rubella immune. 4. History of chlamydia with treatment of Azithromycin - test of cure per Dr. Rodriguez's note. 5. care per unit routine. 6. Activity as tole rated. 7. Regular diet. 8. Anticipate discharge in 24-48 hours pending lockstitch lining setter's recommendation Diagnosis: Stroke: No - Discharge Data Discharge Date: 11/13/20 Discharge Disposition: Home, Self-Care 01 Condition: Good - Referral to Home Health Primary Care Physician: Bryan Rodriguez MD - Discharge Diagnosis/Problem(s) (1) History of delivery affecting SNOMED Code(s): 602509358, 378192107 ICD Code: O34.219 - MATERNAL CARE FOR UNSP TYPE SCAR FROM PREVIOUS DEL Status: Acute Current Visit: Yes (2) 38 weeks gestation of SNOMED Code(s): 19165740 ICD Code: Z3A.38 - 38 WEEKS GESTATION OF Status: Acute Current Visit: Yes (3) History of Chlamydia trachomatis infection by direct DNA probe SNOMED Code(s): 195985778 ICD Code: Z86.19 - PERSONAL HISTORY OF OTHER INFECTIOUS AND PARASITIC DISEASES Status: Acute Current Visit: Yes (4) History of maternal Chlamydia infection, currently in third trimester SNOMED Code(s): 27940272, 13619069 ICD Code: O09.293 - SUPRVSN OF PREG W POOR REPRODCTV OR OBSTET HX, THIRD TRI Status: Acute Current Visit: Yes - Patient Summary/Data Complications: None Consults: none Hospital Course: uneventful - Patient Instructions Driving: Do Not Drive (x48 hrs) Showering/Bathing: May Shower Notify Provider of: Fever, Increased Pain, Swelling and Redness, Drainage, N ausea and/or Vomiting - Discharge Plan *PRESCRIPTION DRUG MONITORING PROGRAM REVIEWED*: Not Applicable *COPY OF PRESCRIPTION DRUG MONITORING REPORT IN PATIENT [place]: Not Applicable Home Medications: Home Meds Multivitamin [Flintstones] 1 each PO DAILY 11/12/20 [History] Acetaminophen [Tylenol] 650 mg PO Q6H PRN tablet 11/13/20 [Rx] Benzocaine/Menthol [Dermoplast Pain Relief [place]] 1 spray TOP ASDIRECTED PRN canister 11/13/20 [Rx] Docusate Sodium [Colace] 100 mg PO BID PRN cap 11/13/20 [Rx] Ibuprofen [Motrin] 600 mg PO Q6H PRN tablet 11/13/20 [Rx] witch Naomie [Tucks] 1 pad TOP ASDIRECTED PRN pad 11/13/20 [Rx] Patient Handouts: Steps to Quit Smoking - Discharge Summary/Plan Comment DC Time >30 min.: No - Patient Data Vitals - Most Recent: Last Vital Signs Temp 98.2 F 11/13/20 03:39 Pulse 74 11/13/20 03:39 Resp 14 11/13/20 03:39 BP 124/97 H 11/13/20 03:39 Pulse Ox 97 11/13/20 03:39 Weight - Most Recent: 197 lb 14.4 oz Lab Results - Last 24 hrs: Laboratory Results - last 24 hr 11/12/20 Range/Units 00:38 RPR Non-reactive (NONREACTIVE) CRISTIANA Results - Last 24 hrs: Microbiology 11/12/20 01:32 MRSA Culture - Final Nasal/Axilla/Groin NO MRSA ISOLATED Med Orders - Current: Current Medications Acetaminophen (Acetaminophen 325 Mg Tab) 650 mg PO Q4H PRN PRN Reason: mild pain or fever Benzocaine/Menthol (Benzocaine/Menthol 20%-0.5% [place] 56 Gm Canister) 0 gm TOP ASDIRECTED PRN PRN Reason: Perineal Comfort Measure Docusate Sodium (Docusate Sodium 100 Mg Cap) 100 mg PO BID PRN PRN Reason: Constipation Ibuprofen (Ibuprofen 600 Mg Tab) 600 mg PO Q4H PRN PRN Reason: Mild pain or fever Last Admin: 11/13/20 09:17 Dose: 600 mg Documented by: Oxycodone/Acetaminophen (Acetaminophen/Oxycodone 325-5 Mg Tab) 1 tab PO Q4H PRN PRN Reason: Pain (moderate 4-6) Last Admin: 11/13/20 03:34 Dose: 1 tab Documented by: Oxycodone/Acetaminophen (Acetaminophen/Oxycodone 325-5 Mg Tab) 2 tab PO Q4H PRN PRN Reason: Pain (severe 7-10) Last Admin: 11/12/20 22:08 Dose: 2 tab Documented by: Prenat Multivit/Bosque/Iron/Folic Ac ( Multivitamin With Calcium/Folic Acid/Iron Tab) 1 each PO DAILY [place] Last Admin: 11/13/20 09:18 Dose: 1 each Documented by: Marian Akbar (Marian Akbar Medicated Pads 40/Jar) 1 pad TOP ASDIRECTED PRN PRN Reason: Perineal Comfort Measure Discontinued Medications Calcium Carbonate/Glycine (Calcium Carbonate 500 Mg Tab.Chew) 1,000 mg PO Q2H PRN PRN Reason: Indigestion Diphenhydramine HCl (Diphenhydramine 50 Mg/Ml Sdv) 25 mg IVPUSH Q6H PRN PRN Reason: pruritis Ephedrine Sulfate (Ephedrine 50 Mg/Ml Sdv) 5 mg IVPUSH ASDIRECTED PRN PRN Reason: Hypotension Last Admin: 11/12/20 03:57 Dose: 5 mg Documented by: Fentanyl (Fentanyl 100 Mcg/2 Ml Sdv) 100 mcg EPIDUR Q3H PRN PRN Reason: Pain Last Admin: 11/12/20 02:56 Dose: 100 mcg Documented by: Fentanyl/Bupivacaine HCl (Bupivacaine/Fentanyl/Ns 100 Ml Bag) 100 ml EPIDUR ASDIRECTED PRN PRN Reason: Pain Last Admin: 11/12/20 03:03 Dose: 100 ml Documented by: Lactated Ringer's (Ringers, Lactated) 1,000 mls @ 100 mls/hr IV ASDIRECTED [place] Last Admin: 11/12/20 07:31 Dose: 100 mls/hr Documented by: Oxytocin/Lactated Ringer's (Pitocin In Lr 10 Units/1,000 Ml) 10 unit in 1,000 mls @ 12 mls/hr IV TITRATE [place]; Protocol Last Titration: 11/12/20 09:00 Dose: 4 munits/min, 24 mls/hr Documented by: Oxytocin/Lactated Ringer's (Pitocin In Lr 10 Units/1,000 Ml) 10 unit in 1,000 mls @ 500 mls/hr IV .CONTINUOUS [place] Lidocaine HCl (Lidocaine 1% 50 Ml Mdv) 50 ml INJECT ONETIME ONE Stop: 11/12/20 00:07 Last Admin: 11/12/20 12:23 Dose: Not Given Documented by: Lidocaine/Epinephrine (Lidocaine 1.5% With Epinephrine 1:200,000 5 Ml Amp) 5 ml .ROUTE .STK-MED ONE Stop: 11/12/20 12:01 Nalbuphine HCl (Nalbuphine 10 Mg/1 Ml Vial) 10 mg IVPUSH Q2H PRN PRN Reason: Pain Sodium Chloride (Sodium Chloride 0.9% 10 Ml Syringe) 10 ml FLUSH ASDIRECTED PRN PRN Reason: Keep Vein Open
[2020-11-13 13:09] VITALS: BP 122/55; PULSE 63
== END 2020-11-13 12:55 | disposition home or self-care (01) | DRG 807 ==
LOC: JD.OBCHECK 23:02 → JD.OB 23:08 → JD.OBCHECK 11-12 00:06 → JD.OB 11-12 00:38 → OBSVTOIN 11-12 11:02 → JD.OB 11-12 11:03
PROVIDERS: ADMIT Obstetrics & Gynecology; ATTEND Obstetrics & Gynecology
PROC: 10E0XZZ Delivery of Products of Conception, External Approach (ICD-10-PCS; principal; 2020-11-12)
PROC: 10907ZC Drainage of Amniotic Fluid, Therapeutic from Products of Conception, Via Natural or Artificial Opening (ICD-10-PCS; 2020-11-12)
PROC: 0UQMXZZ Repair Vulva, External Approach (ICD-10-PCS; 2020-11-12)
PROC: 3E0R3BZ Introduction of Anesthetic Agent into Spinal Canal, Percutaneous Approach (ICD-10-PCS; 2020-11-12)
PROC: 00HU33Z Insertion of Infusion Device into Spinal Canal, Percutaneous Approach (ICD-10-PCS; 2020-11-12)
DX: O77.0 Labor and delivery complicated by meconium in amniotic fluid (principal); Z37.0 Single live birth; Z3A.38 38 weeks gestation of pregnancy; O70.0 First degree perineal laceration during delivery; Z88.0 Allergy status to penicillin; Z91.040 Latex allergy status; Z88.2 Allergy status to sulfonamides; Z90.49 Acquired absence of other specified parts of digestive tract
CPT/HCPCS: 01967; 36415; 51702; 59025; 59409; 80306; 81001; 84112; 85025; 86592; 86803; 86850; 86900; 86901; 87070; 87641; A9270-GY; J2590; J3010; J7120; U0002